=== PATIENT | female | born 1960 | race Caucasian/White ===

== ENCOUNTER → 2017-03-06 | Outpatient (CLI) | payer OTHER ==
[~2017-03-06] MED LIST: ENOX40IN SQ; MULT-506 PO; OXYC-292 PO; OXYC-643 PO
--- NOTE | 2017-03-07 12:58 | MAMMOGRAPHY REPORT ---
BILATERAL DIGITAL SCREENING MAMMOGRAM TOMOSYNTHESIS WITH CAD: 03/06/2017 CLINICAL HISTORY: Routine screening examination. TECHNIQUE: Breast tomosynthesis in addition to standard 2D mammography was performed. Current study was also evaluated with a Computer Aided Detection (CAD) system. COMPARISON: Comparison is made to exams dated: 03/01/2016 mammogram, 02/24/2015 mammogram, 02/18/2014 m ammogram, 02/12/2013 mammogram, 02/07/2012 mammogram, and 02/02/2011 mammogram - [facility]. BREAST COMPOSITION: There are scattered areas of fibroglandular density in both breasts. FINDINGS: There are stable intramammary lymph nodes in each upper outer quadrant. No suspicious mas s, architectural distortion or cluster of new, suspicious microcalcifications is seen. IMPRESSION: ACR BI-RADS CATEGORY 1: NEGATIVE There is no mammographic evidence of malignancy. A 1 year screening mammogram is recommended. The p atient will receive written notification of the results. Approximately 10% of breast cancers are not detected with mammography. A negative mammographic repor t should not delay biopsy if a clinically suggestive mass is present. Yeimy Jerome M.D. ay/:03/06/2017 17:32:09 Campus Security Officer: Germania MORE(Maral)(M), letter sent: Normal 1/2 BI-RADS Code: ACR BI-RADS Category 1: Negative
== END | disposition home or self-care (01) ==
LOC: C.MAMM 07:57
PROVIDERS: ATTEND Family Medicine
DX: Z12.31 Encounter for screening mammogram for malignant neoplasm of breast (principal)

== ENCOUNTER → 2018-05-22 | Outpatient (CLI) | payer OTHER ==
--- NOTE | 2018-05-22 13:38 | MAMMOGRAPHY REPORT ---
BILATERAL DIGITAL SCREENING MAMMOGRAM TOMOSYNTHESIS WITH CAD: 05/22/2018 CLINICAL HISTORY: Routine screening. Patient has no complaints. TECHNIQUE: The study was acquired using full field digital technology and interpreted from soft copy. Breast tomosynthesis in addition to standard 2D mammography was performed. Current study was also ev aluated with a Computer Aided Detection (CAD) system. COMPARISON: Comparison is made to exams dated: 03/06/2017 mammogram, 03/01/2016 mammogram, 02/24/2015 m ammogram, 02/18/2014 mammogram, 02/12/2013 mammogram, and 02/07/2012 mammogram - [facility]. BREAST COMPOSITION: There are scattered areas of fibroglandular density in both breasts. FINDINGS: There are stable intramammary lymph nodes in each upper outer quadrant. A few scattered be nign-appearing calcifications. No suspicious mass, architectural distortion or cluster of microcalcif ications is seen. IMPRESSION: ACR BI-RADS CATEGORY 1: NEGATIVE There is no mammographic evidence of malignancy. A 1 year screening mammogram is recommended.( 019) The patient will receive written notification of the results. Some breast cancers are not detected with mammography. A negative mammographic report should not joann y biopsy if a clinically suggestive mass is present. Yeimy Jerome M.D. ay/:05/22/2018 12:51:37 Fugitive Investigator: RT Janine(Maral)(Shwetha), [facility] letter sent: Normal 1/2 BI-RADS Code: ACR BI-RADS Category 1: Negative
== END | disposition home or self-care (01) ==
LOC: C.MAMM 09:47
PROVIDERS: ATTEND Family Medicine
DX: Z12.31 Encounter for screening mammogram for malignant neoplasm of breast (principal)

== ENCOUNTER 2024-12-05 10:59 | Inpatient (IN) ==
--- NOTE | 2024-11-13 09:20 | PAT Medication Instructions ---
Medication Instructions Date of Service November 13, 2024 Home Medications Medication Instructions Recorded gabapentin 800 mg tablet 800 mg PO TID #90 tabs 01/02/24 tramadol 50 mg tablet 50 mg PO BID diclofenac sodium 75 mg tablet,delayed release 75 mg PO BID PRN docusate sodium 100 mg capsule (Colace) 100 mg PO BID gabapentin 800 mg tablet 800 mg PO TID cyclobenzaprine 5 mg tablet 5 mg PO HS Amberen Menopause Support 2 cap PO QAM Black Elderbery Gummies 2 tab PO QAM Brain Health 6 Function 1 cap PO QAM Energy Multivitamin 1 tab PO QAM [place] Xl [place] Support 2 cap PO BID cholecalciferol (vitamin D3) 125 mcg (5,000 unit) tablet (Vitamin D3) 125 mcg PO QAM ASK your surgeon for instructions diclofenac sodium 75 mg tablet,delayed release 75 mg PO BID PRN STOP taking 2 weeks before surgery (or as soon as possible if surgery is within 2 weeks) Amberen Menopause Support 2 cap PO QAM Black [place] Gummies 2 tab PO QAM Brain Health 6 Function 1 cap PO QAM Energy Multivitamin 1 tab PO QAM [place] Xl [place] Support 2 cap PO BID DO NOT take the morning of surgery docusate sodium 100 mg capsule (Colace) 100 mg PO BID cholecalciferol (vitamin D3) 125 mcg (5,000 unit) tablet (Vitamin D3) 125 mcg PO QAM Take morning of surgery With a small sip of water, OTHERWISE NOTHING TO EAT OR DRINK AFTER MIDNIGHT: tramadol 50 mg tablet 50 mg PO BID gabapentin 800 mg tablet 800 mg PO TID Take evening before surgery tramadol 50 mg tablet 50 mg PO BID docusate sodium 100 mg capsule (Colace) 100 mg PO BID gabapentin 800 mg tablet 800 mg PO TID cyclobenzaprine 5 mg tablet 5 mg PO HS Other Notes If you have any questions please call us at [phone] or [phone] or [phone] or [phone]
--- NOTE | 2024-11-14 09:42 | Anesthesiology Consultation ---
Date of Service November 14, 2024 Assessment & Plan (1) Encounter for pre-operative examination: - surgeon ordered medical clearance, 11/28/[address] Lisa. Chart Review Chart Review: Pending: Refer to Additional Notes / Consult section and Patient seen in Pre Admission Testing Teaching & Discussion Pre-Anesthesia Teaching/Discussion Notes: Instructed NPO after midnight before surgery, except medications with 15 cc of water. Medication instructions provided according to the PAT guidelines. History Surgery Operation Date: 12/05/24 10:05 Proposed Procedures p L4-S1 Decompression L3-S1 Fusion Spinal Cord Monitoring - Jared Dye DO Height/Weight Height: 5 ft 1 in Weight: 105 kg Allergies Allergy/AdvReac Type Severity Reaction Status Date / Time No Known Allergies Allergy Unknown Verified 11/13/24 07:42 Medications Home Medications Medication Instructions Recorded Confirmed Last Taken tramadol 50 mg tablet 50 mg PO BID 11/10/21 11/13/24 Unknown diclofenac sodium 75 mg 75 mg PO BID PRN Pain 03/20/23 11/13/24 Unknown tablet,delayed release docusate sodium 100 mg capsule 100 mg PO BID 01/02/24 11/13/24 Unknown (Colace) gabapentin 800 mg tablet 800 mg PO TID #90 tabs 01/02/24 11/13/24 Unknown cyclobenzaprine 5 mg tablet 5 mg PO HS 07/07/24 11/13/24 Unknown Amberen Menopause Support 2 cap PO QAM 11/13/24 11/13/24 Unknown Black [place]bery Gummies 2 tab PO QAM 11/13/24 11/13/24 Unknown Brain Health 6 Function 1 cap PO QAM 11/13/24 11/13/24 Unknown Energy Multivitamin 1 tab PO QAM 11/13/24 11/13/24 Unknown Romeo Xl Romeo Support 2 cap PO BID 11/13/24 11/13/24 Unknown cholecalciferol (vitamin D3) 125 125 mcg PO QAM 11/13/24 11/13/24 Unknown mcg (5,000 unit) tablet (Vitamin D3) Past Medical History Medical History (Updated 11/14/24 @ 09:47 by Farrah Hair PA-C) 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 Exercise / Class Metabolic Activity III < 4 Walking/Shop/Light housework (ambulates with rolling walker, denies chest discomfort or shortness of breath with usual activities) Past Family History Family History Father Family history of diabetes mellitus Other No family history of adverse response to anesthesia Past Surgical History Surgical History H/O shoulder surgery right/left History of bilateral tubal ligation History of cholecystectomy History of colonoscopy History of lithotripsy History of salpingectomy History of tonsillectomy History of tooth extraction History of total knee replacement right/left Past Anesthesia History No Hx of Anesthesia Complications and No Family Hx of Anesthesia Complications History of PONV No Hx of PONV and No Hx of Motion Sickness Social History Smoking Status: Never smoker Do You Dip or Chew Tobacco: No Hx Alcohol Use: No Hx Substance Use: No substance use type: does not use Review of Systems Patient denies chest pain, shortness of breath, dyspnea on exertion, snoring, witnessed apneas, reflux, fever, chills, cough, wheezing, or palpitations. Physical Exam Vital Signs Vitals BP 127/82 P 75 TEMP 97.9 SP02 94% on RA RESP 18 Physical Patient resting comfortably in chair in no acute distress, alert and oriented, responding appropriately throughout visit Full cervical extension range of motion without pain TMD 3 finger breadths Mallampati Score 3 Dentition: edentulous, full upper and lower dentures Lungs: normal respiratory effort. Good air movement, clear throughout to auscultation, no adventitious breath sounds Cardiac: regular rate and rhythm, no murmurs noted Carotid arteries: negative bruit bilat Lab Results Anesthesia Preop Results Results Anesthesia Widget: WBC 4.59 K/ul (4.8-10.8) L 11/14/24 Hgb 12.5 g/dl (12.0-16.0) 11/14/24 Hct 37.0 % (37.0-47.0) 11/14/24 Plt 240 K/uL (130-400) 11/14/24 Na 140 mmol/L (136-145) 11/14/24 K 4.1 mmol/L (3.5-5.1) 11/14/24 Cl 105 mmol/L (98-107) 11/14/24 CO2 29 mmol/L (21-32) 11/14/24 BUN 16 mg/dl (6-23) 11/14/24 Creat 0.73 mg/dl (0.6-1.2) 11/14/24 Glucose Level 93 mg/dl (70-99(Fasting)) 11/14/24 PT 10.3 Seconds (9.0-12.0) 11/14/24 PTT 28 Seconds (21-31) 11/14/24 INR 0.9 (0.9-1.1) 11/14/24 Urine Color Yellow 11/14/24 Urine Appearance Cloudy (Clear) A 11/14/24 Urine pH 5.5 (4.5-7.5) 11/14/24 Urine Specific [place] 1.019 (1.000-1.030) 11/14/24 Urine Protein Negative (Negative) 11/14/24 Urine Glucose (UA) Negative (Negative) 11/14/24 Urine Ketones Trace (Negative) H 11/14/24 Urine Blood Negative (Negative) 11/14/24 Urine Nitrite Negative (Negative) 11/14/24 Urine Bilirubin Negative (Negative) 11/14/24 Urine Urobilinogen Negative (Negative) 11/14/24 Urine Leukocyte Esterase 3+ (Negative) H 11/14/24 Urine WBC (Auto) >50 /hpf (0-5) H 11/14/24 Urine RBC (Auto) 3-5 /hpf (0-2) H 11/14/24 Urine Hyaline Casts (Auto) 3-5 /lpf (0-2) H 11/14/24 Urine Epithelial Cells (Auto) 0-2 /hpf (0-2) 11/14/24 Urine Bacteria (Auto) 1+ (None Seen) H 11/14/24 Blood Type O Positive 11/14/24 Antibody Screen NEGATIVE 11/14/24 Testing Laboratory Results Surgeon's office made aware of abnormal UA. Electrocardiogram Date: 11/14/24 Sinus rhythm with PACs, rate 85 bpm Chest X-Ray Date: 11/14/24 No acute findings.
[~2024-12-05 10:59] MED LIST changes: +DEXAMETHASONE SOD INJ 4 MG/ML VIAL ONE; -ENOX40IN SQ; +GLYCOPYRROLATE 0.2 MG/ML VIAL ONE; +LIDOCAINE 2% 2 ML VIAL/AMP(20MG/ML) INFIL ONE; +MIDAZOLAM HCL 1 MG/ML 2ML VIAL ONE; -MULT-506 PO; +ONDANSETRON INJ 2 MG/ML 2 ML VIAL ONE; -OXYC-292 PO; -OXYC-643 PO; +PROPOFOL IV EMULSION 10 MG/ML 20 ML VIAL IV ONE; +ROCURONIUM BROMIDE 10 MG/ML 5 ML VIAL IV ONE; +fentaNYL citrate PF 100 MCG/2 ML VIAL ONE
[2024-12-05] MEDS: ACETAMINOPHEN 500 MG TAB PO SCH (11:18)
[2024-12-05] MEDS: CeleBREX 200 MG CAP PO SCH (11:18)
[2024-12-05] MEDS: LR 15ML/HR IV SCH (11:19)
[2024-12-05] MEDS: GABAPENTIN 300 MG CAP PO SCH (11:19)
[2024-12-05] MEDS: LR 60ML/HR IV SCH (11:19)
[2024-12-05] MEDS ORDERED: PROMETHAZINE HCL 6.25 MG in SODIUM CHLORIDE 0.9% 50 ML IV PRN (11:27)
[2024-12-05] MEDS ORDERED: ATROPINE SULFATE 0.1 MG/ML 10ML SYR IV PRN (11:27)
--- NOTE | 2024-12-05 11:33 | History & Physical Bridge Note ---
Date of Service December 05, 2024 History & Physical Bridge Note I have examined the patient, reviewed the History & Physical and in the interval since the performance of the History & Physical I have noted the following changes of clinical significance: no changes noted
--- NOTE | 2024-12-05 11:35 | History & Physical Report ---
Date of Service December 05, 2024 Assessment & Plan (1) Multilevel lumbosacral spondylosis with radiculopathy: Plan: L4-S1 decompression, L3-S1 fusion History of Present Illness Chief Complaint: Back and leg pain. Primary Care Provider: Randa Lisa Patient is a send this is a 64-year-old female presents with persistent back and leg pain and failing course of nonoperative care is here for surgical invention. Allergies Allergy/AdvReac Type Severity Reaction Status Date / Time No Known Allergies Allergy Unknown Verified 12/05/24 11:24 Home Medications Medication Instructions Recorded Confirmed Type tramadol 50 mg tablet 50 mg PO BID 11/10/21 12/05/24 History diclofenac sodium 75 mg 75 mg PO BID PRN Pain 03/20/23 12/05/24 History tablet,delayed release docusate sodium 100 mg capsule 100 mg PO BID 01/02/24 12/05/24 History (Colace) gabapentin 800 mg tablet 800 mg PO TID #90 tabs 01/02/24 12/05/24 Rx cyclobenzaprine 5 mg tablet 5 mg PO HS 07/07/24 12/05/24 History Amberen Menopause Support 2 cap PO QAM 11/13/24 12/05/24 History Black Elderbery Gummies 2 tab PO QAM 11/13/24 12/05/24 History Brain Health 6 Function 1 cap PO QAM 11/13/24 12/05/24 History Energy Multivitamin 1 tab PO QAM 11/13/24 12/05/24 History [place] Xl [place] Support 2 cap PO BID 11/13/24 12/05/24 History cholecalciferol (vitamin D3) 125 125 mcg PO QAM 11/13/24 12/05/24 History mcg (5,000 unit) tablet (Vitamin D3) Past Med/Surg History Problem List (Updated 12/05/24 @ 11:34 by Jared Dye DO) Multilevel lumbosacral spondylosis with radiculopathy Encounter for pre-operative examination Lumbar spondylosis Morbid obesity Lumbar radiculopathy Medical History (Updated 12/05/24 @ 11:34 by Jared Dye DO) Lumbar radiculopathy Restrictive airway disease denies chronic issues-denies inhaler use 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 Osteoarthritis History of kidney stones (~2009) Surgical History History of lithotripsy History of salpingectomy History of bilateral tubal ligation H/O shoulder surgery right/left History of total knee replacement right/left History of colonoscopy History of cholecystectomy History of tooth extraction History of tonsillectomy Family History Father Family history of diabetes mellitus Other No family history of adverse response to anesthesia Social History Smoking Status: Never smoker Second Hand Exposure: Yes (as a child); Do You Dip or Chew Tobacco: No; Hx Alcohol Use: No Hx Substance Use: No Preferred Language: Fijian Visual Impairment: No Limitations Hearing Ability: Normal Parts Identifier Required: No Beliefs That Will Affect Care: None marital status: engaged Current Living Situation: Significant Other current occupational status: employed current occupation: [email or web address] houses Feels Safe at Home: Yes Safety Concerns: Feels Safe At This Time Assistive Devices: Denture - Upper, Denture - Lower, Glasses and Walker Assistive Devices Comment: reading glasses Physical Exam Physical Exam: Patient is alert and oriented heart regular rhythm lungs clear
[2024-12-05] MEDS: ceFAZolin 2000MG 2,000 MG/15 ML SYR IV SCH ×2 (12:07→20:33)
[2024-12-05] MEDS: BUPIVACAINE/EPINEPHRINE 0.25% 1:200,000 30 ML VIAL ONE (13:03)
[2024-12-05] MEDS: ceFAZolin 330 MG/ML 1 GM VIAL ONE (13:04)
[2024-12-05] MEDS ORDERED: PHENYLEPHRINE 100MCG/ML 5ML SYR ONE (13:13)
[2024-12-05] MEDS ORDERED: SUGAMMADEX SODIUM 200 MG/2 ML VIAL IV ONE (13:52)
[2024-12-05] MEDS ORDERED: HYDROmorphone INJ 2 MG/ML SYR/VIAL ONE (14:30)
[2024-12-05] MEDS: FLOSEAL HEMOSTATIC MATRIX 10ML TOP ONE (14:33)
--- NOTE | 2024-12-05 14:48 | Operative Report ---
Post Operative Report Pre & Post Diagnosis Operation Date: 12/05/24 12:25 Pre-Op Diagnosis: Multilevel Lumbosacral Spondylosis with Radiculopathy Lumbar spinal stenosis with neurogenic claudication Morbid obesity Post-Op Diagnosis: Same I identified the patient and participated in the time-out.: Yes Procedure Operation Date: 12/05/24 12:25 Actual Procedures #1 lumbar decompression with bilateral medial facetectomies and foraminotomies L3-L4 L4-L5 L5-S1. #2 posterior spinal fusion L3-L4 L3-L4 L4-5. #3 placed posterior segmental instrumentation L3-L5. #4 interbody fusion L4-L5 L5-S1. #5 placement of Spira 12 x 26 mm x 2 at L4-5 and 13 x 26 mm x 2 and L5-S1. #6 placement locally harvested morselized autograft posterior gutters per #7 placement of infuse collagen sponge, with Koros in the posterior lateral gutters and os design interbody space. #8 application of versa wrap of the exposed dura. Surgeon Jared Dye, DO Flare Worker Garry Deleon Estimated Blood Loss 550 Findings See Below The patient is 5 foot 1 weighing 105 kg with a BMI in excess of 43. Patient's body habitus did contribute to significant technical difficulty with positioning exposure and the procedure itself and at least 50% increased operative time. Specimens None Indications This is a 64-year-old female who presents above-mentioned diagnosis after failing course of nonoperative care is here for surgical invention. Description of Procedure Patient was met with identified informed consent obtained. Patient was then taken to the operative suite underwent intubation placed in a prone position on the Andrew table on top of the Dany frame. All bony promises well-padded eyes inspected to ensure no external pressure placed upon them. This point lumbar spine was prepped and draped in normal sterile fashion. Sharp dissection with the assistance of Bovie cautery performed down to and exposing the lamina and transverse processes of L3-L4-L5 and the sacral ala bilaterally. From caudal to cephalad fashion complete laminectomy of L5 was performed including bilateral medial facetectomies and foraminotomies addressing severe spinal stenosis. This was followed by complete laminectomy of L4. This included bilateral medial facetectomies and foraminotomies addressing severe spinal stenosis and lastly partial laminectomy of L3 with bilateral medial facetectomies to address all subarticular stenosis. Pedicle screws were then placed in L3-L4-L5 and S1 levels bilaterally with assistance of fluoroscopy and globus as aneta placed. By way of a transforaminal portion right discectomy of L5-S1 was performed endplates corrected to subcortical and bone and a 13 x 26 mm Spira cage filled with os designed tapped in position. Then proceeded the left transforaminal region L5-S1. Again discectomy performed. Endplates guarded to subcortical main bone. A second 13 x 26 mm spiral cage filled with os design bone graft tapped position. Then proceeded L4-[address] transfer approach and a left discectomy was performed endplates guarded to subcortical bleeding bone and a 12 x 26 mm spiral cage filled with os design tapped in position. Then proceeded to the right transforaminal region at L4-L5. Again discectomy performed. Endplates guided to subcortical bleeding bone and a second 12 x 26 mm Spira cage filled with os design bone graft tapped in position. The rods were then locked in final position bilaterally. The transverse processes of L3 L4-5 and the sacral ala burred to subcortical bone. Infuse collagen sponge, with Koros and local autograft placement posterior gutters. Versa wrap placed over the exposed dura. 15 round drain round [id number] drain inserted. The incision was then closed with 1 Vicryl the fascia 2-0 Vicryl subcutaneously and 4 Monocryl for final skin closure. Steri-Strips sterile dressing placed. Patient waken taken to PACU in stable condition. Please note spinal cord monitoring was utilized at the procedure no changes noted. Garry Deleon was present at the entire surgery involved the patient positioning complex portion of the surgery and final skin closure. I attest to the content of the Intraoperative Record and any orders documented therein. Any exceptions are noted below.
--- NOTE | 2024-12-05 15:41 | Fluoroscopy Report ---
FL lumbar spine 2-3V CLINICAL HISTORY: L4-S1 DECOMPRESSION AND L3-S1 FUSION COMPARISON STUDY: Lumbar spine MRI October 23, 2024. FLUOROSCOPY TIME: 31 seconds. Ka,r: 29.91 mGy FLUOROSCOPIC IMAGES: 2 FINDINGS: Fluoroscopy provided during posterior decompression with L4-L5 and L5-S1 discectomies with interbody spacer placement. L4 and L5 compression fractures shown on preoperative MRI. Bilateral pedi patti screw fusion from L3 through S1 is noted. IMPRESSION: Fluoroscopy provided during L3-S1 decompression and fusion. ACT 112: Negative or not required by law. Electronically signed by: Stefan Gaytan M.D. 12/05/2024 3:40 PM
[2024-12-05] MEDS: HYDROmorphone INJ 1 MG/ML SYRINGE IV PRN (15:55)
--- NOTE | 2024-12-05 16:09 | Anesthesiology Progress Note ---
Date of Service December 05, 2024 Anesthesia Post Procedure Vital Signs Vital Signs: Temp Pulse Resp BP Pulse Ox O2 Del Method O2 Flow Rate 12/05/24 15:55 86 17 137/75 97 Nasal Cannula 2 12/05/24 15:45 89 18 125/68 96 Nasal Cannula 2 12/05/24 15:35 73 18 126/59 L 99 Oxymask 8 12/05/24 15:25 82 12 136/65 99 Oxymask 8 12/05/24 15:15 84 13 117/75 100 Oxymask 12 12/05/24 15:05 36 C L 81 21 140/71 94 Oxymask 12 12/05/24 11:28 Room Air 12/05/24 11:28 36.5 C 88 22 149/82 H 95 Room Air Pain Intensity Left Lower Hip: Pain Intensity: 5 Transfer of Care Handoff Completed per policy Notes Mental Status: alert / awake / arousable Patient Amnestic to Procedure: Yes Nausea / Vomiting: adequately controlled Pain: adequately controlled Airway Patency, RR, SpO2: stable & adequate BP & HR: stable & adequate Hydration State: stable & adequate Anesthetic Complications: no major complications apparent
[2024-12-05] MEDS ORDERED: diphenhydrAMINE Capsule 25 MG CAP PO PRN (16:54)
[2024-12-05] MEDS ORDERED: DO NOT ADMINISTER FLU VACCINE PRN (16:54)
[2024-12-05] MEDS ORDERED: ACETAMINOPHEN 500 MG TAB PO PRN (16:54)
[2024-12-05] MEDS ORDERED: HYDROmorphone INJ 0.5 MG/0.5 ML SYR IV PRN (16:54)
[2024-12-05] MEDS ORDERED: DO NOT ADMINISTER PNEUMOCOCCAL VACCINE PRN (16:54)
[2024-12-05] MEDS ORDERED: HYDROmorphone INJ 1 MG/ML SYRINGE IV PRN (16:54)
[2024-12-05] MEDS ORDERED: LORazepam 2 MG/1 ML VIAL IV PRN (16:54)
[2024-12-05] MEDS ORDERED: NALOXONE HCL 0.4 MG/1 ML VIAL/CARP IV PRN (16:54)
[2024-12-05] MEDS ORDERED: LORazepam 0.5 MG TAB PO PRN (16:54)
[2024-12-05] MEDS ORDERED: hydrOXYzine HCl 25 MG TAB PO PRN (16:54)
[2024-12-05] MEDS ORDERED: ONDANSETRON 4 MG OD TAB PO PRN (16:54)
[2024-12-05] MEDS ORDERED: MAGNESIUM HYDROXIDE SUSP 30 ML UDC PO PRN (16:54)
[2024-12-05] MEDS ORDERED: METOCLOPRAMIDE HCL INJ 5 MG/ML 2 ML VIAL IV PRN (16:54)
[2024-12-05] MEDS ORDERED: ALUMINUM/MAGNESIUM SUSP 30 ML UDC PO PRN (16:54)
[2024-12-05] MEDS ORDERED: ACETAMINOPHEN 1,000 MG/100 ML VIAL IV PRN (16:54)
[2024-12-05] MEDS ORDERED: PROMETHAZINE 12.5 MG/50.5 ML BAG IV PRN (16:54)
[2024-12-05] MEDS ORDERED: ONDANSETRON INJ 2 MG/ML 2 ML VIAL IV PRN (16:54)
[2024-12-05] MEDS ORDERED: FAMOTIDINE 20 MG TAB PO PRN (16:54)
[2024-12-05] MEDS ORDERED: bisacodyL 10 MG SUPP PR PRN (16:54)
[2024-12-05] MEDS ORDERED: SOD PHOSPHATE/SOD BIPHOSPHATE ENEMA 132 ML BTL PR PRN (16:54)
[2024-12-05] MEDS: DOCUSATE SODIUM/SENNA 50/8.6MG TAB PO SCH (20:33)
[2024-12-05] MEDS: DOCUSATE SODIUM 100 MG CAP PO SCH (20:33)
[2024-12-05] MEDS: GABAPENTIN 800 MG TAB PO SCH (21:17)
[2024-12-05] MEDS: traMADol HCL 50 MG TABLET PO PRN (22:26)
[2024-12-05] MEDS: oxyCODONE HCL IR 5 MG TAB (IMMEDIATE RELEASE) PO PRN (23:14)
[2024-12-06] MEDS: POLYETHYLENE (MIRALAX) 17 GM PACK PO SCH (05:15)
[2024-12-06 07:43] LABS: Basophils # (auto) 0.01 K/uL (0.00-0.20); Basophils % (auto) 0.1 %; Hematocrit (blood only) 29.2 % (37.0-47.0); Immature Granulocytes # (auto) 0.04 K/uL (0.01-0.20); Immature Granulocytes % (auto) 0.4 %; Lymphocytes # (auto) 1.37 K/uL (1.20-3.40); Lymphocytes % (auto) 13.9 %; Mean Corpuscular Hemoglobin 34.5 pg (25.0-34.0); Mean Corpuscular Hgb Conc 34.2 g/dL (32.0-36.0); Mean Corpuscular Volume 100.7 fL (80.0-100.0); Mean Platelet Volume 9.4 fL (9.4-12.4); Monocytes # (auto) 0.64 K/uL (0.11-0.59); Monocytes % (auto) 6.5 %; Neutrophils # (auto) 7.78 K/uL (1.40-6.50); Neutrophils % (auto) 79.1 %; Platelet Count 232 K/uL (130-400); White Blood Count 9.84 K/ul (4.8-10.8)
[2024-12-06 07:56] LABS: BUN Creatinine Ratio 28.6 (10-20); Calcium 8.5 mg/dl (8.6-10.3); Creatinine Clr Calc Pharmacy 99.3 ml/min; Magnesium 1.8 mg/dl (1.7-2.4); Potassium 4.3 mmol/L (3.5-5.1)
[2024-12-06 08:18] LABS: Folate (Folic Acid),Ser orPlas 21.56 ng/ml (>5.38)
[2024-12-06] MEDS: dexAMETHasone 6 MG in SYRINGE 0 ML IV SCH (08:22)
[2024-12-06] MEDS: CHOLECALCIFEROL 125 MCG (5,000 UNITS) TAB PO SCH (08:22)
[2024-12-06] MEDS ORDERED: [UNRECOGNIZED DRUG - OTHER] PO SCH (09:00)
--- NOTE | 2024-12-06 09:13 | Hospitalist Consultation ---
Date of Consultation December 06, 2024 Assessment & Plan (1) Multilevel lumbosacral spondylosis with radiculopathy: L4-S1 decompression and L3-S1 fusion with Dr Dye on 12/05. EBL 550cc EBL 550cc WBC wnl Hgb 12.5--> 10.0, acute blood loss anemia from surgery (EBL 550cc, JYOTSNA output 480 + 80cc) -No CP/SOB, symptoms from such and will monitor. Home diclofenac BID deferred to prevent worsened bleeding issues. Pain control, bowel regimen/PT/OT per primary service -No gas, slightly hypoactive BS but no overt tenderness. -Monitor for ileus/ambulation encouraged *Notable Urine cx prior ecoli pansensitive pre-op testing. -Got ancef w/ surgery, will continue q8h for today/convert to PO in AM to prevent complications as does not appear was tx prior to surgery, confirmed w/ patient.No abx allergies, would complete course w/ Keflex PO (2) Lumbar radiculopathy: as above, continues on high dose gabapentin TID, B12 wnl 379 and can start low dose B12 PO Management as above (3) Abnormal urinalysis: abnormal UA/urine cx on pre-op testing, does not appear has been treated and Ancef resumed/continued and would complete course w/ Keflex PO. Paredes in place at present, yellow urine present and UOP acceptable Plan to complete PO abx course Plan Thank you for allowing hospitalist service to participate in the care of Ms Ramos. Hospitalist service will follow along in AM, please call with any questions/concerns. Supervising Physician Co-Signing Physician Notes The patient was seen by me. The chart was reviewed. Case discussed with RONALD Loyd. Agree with assessment and plan History of Present Illness Reason for Consultation: medical management Requesting Physician: Dr Dye Attending Physician: Jared Dye, History of Present Illness 64yo female with PMHx presented for L4-S1 decompression and L3-S1 fusion with Dr Dye on 12/05. EBL 550cc Sitting up in chair, on phone. Pain controlled with ordered meds. Belly gurgling per patient but no bowel movement. Paredes in place. Denies urinary sx prior to surgery but also denies ever tx for UTI. Discussed I resumed ancef but did get pre-op and rec to primary to continue/complete course w/ Keflex. Got usual meds except vitamins/supplements taking at home with exception of her diclofenac BID but discussed would avoid for now/prevent bleeding and rec continue pain regimen per primary given stability presently. No CP/SOB, no nausea/vomiting. Wegovy on home med list, but denies taking -- [facility] Questions/concerns addressed at this time, anticipates dc home on Sunday per patient. Seen by therapy this morning and allowed to ambulate w/ walker herself. Chronic stable R hemidiaphagm elevation per PCP note. No tobacco/alcohol use or allergies. Takes gabapentin 800mg TID for neuropathy. Allergies Allergy/AdvReac Type Severity Reaction Status Date / Time No Known Allergies Allergy Unknown Verified 12/05/24 11:24 Home Medications Medication Instructions Recorded Confirmed Type tramadol 50 mg tablet 50 mg PO BID 11/10/21 12/05/24 History diclofenac sodium 75 mg 75 mg PO BID PRN Pain 03/20/23 12/05/24 History tablet,delayed release docusate sodium 100 mg capsule 100 mg PO BID 01/02/24 12/05/24 History (Colace) gabapentin 800 mg tablet 800 mg PO TID #90 tabs 01/02/24 12/05/24 Rx cyclobenzaprine 5 mg tablet 5 mg PO HS 07/07/24 12/05/24 History Amberen Menopause Support 2 cap PO QAM 11/13/24 12/05/24 History Black Elderbery Gummies 2 tab PO QAM 11/13/24 12/05/24 History Brain Health 6 Function 1 cap PO QAM 11/13/24 12/05/24 History Energy Multivitamin 1 tab PO QAM 11/13/24 12/05/24 History [place] Xl [place] Support 2 cap PO BID 11/13/24 12/05/24 History cholecalciferol (vitamin D3) 125 125 mcg PO QAM 11/13/24 12/05/24 History mcg (5,000 unit) tablet (Vitamin D3) oxycodone 5 mg tablet 5 mg PO Q6H PRN pain #30 tabs 12/06/24 Rx tramadol 50 mg tablet 50 mg PO Q6H PRN pain, moderate 12/06/24 Rx #30 tabs Patient History Medical History Lumbar radiculopathy Restrictive airway disease denies chronic issues-denies inhaler use 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 Osteoarthritis History of kidney stones (~2009) Surgical History History of lithotripsy History of salpingectomy History of bilateral tubal ligation H/O shoulder surgery right/left History of total knee replacement right/left History of colonoscopy History of cholecystectomy History of tooth extraction History of tonsillectomy Family History Father Family history of diabetes mellitus Other No family history of adverse response to anesthesia Social History Smoking Status: Never smoker Second Hand Exposure: Yes (as a child); Do You Dip or Chew Tobacco: No; Hx Alcohol Use: No Hx Substance Use: No Preferred Language: Frisian Visual Impairment: No Limitations Hearing Ability: Normal Interchange Agent Required: No Beliefs That Will Affect Care: None marital status: engaged Current Living Situation: Significant Other current occupational status: employed current occupation: [employer] Feels Safe at Home: Yes Safety Concerns: Feels Safe At This Time Assistive Devices: Denture - Upper, Denture - Lower, Glasses and Walker Assistive Devices Comment: reading glasses Physical Exam 2 Physical Exam: General: 64yo obese female sitting up in bed, on phone, NAD HEENT: head atraumatic, normocephalic , thick neck, tachea midline, mmm Resp: clear without wheezing/crackles or tachypnea, chronic R hemidiaphragm elevation CV: sinus, PVC, no pitting edema or calf tenderness, pulses present/preeti hose in place GI: +BS, slightly hypoactive, no overt tenderness/guarding paredes with clear yellow urine MSK/Neuro: LE strength testing acceptable, neuropathy at baseline, pulses present, JYOTSNA bloody drainage Psych: AOx3, cooperative with exam Results & Data Results & Data Vital Signs (Past 12 Hours) Vital Signs Temp Pulse Resp BP Pulse Ox O2 Del Method 12/06/24 07:48 37.0 C 112 H 16 129/65 92 Room Air 12/06/24 04:10 37 C 98 H 16 115/69 92 Room Air 12/05/24 23:24 36.8 C 92 H 18 122/67 92 Room Air Laboratory Results 12/06/24 07:00 12/06/24 07:00 Mag 1.8 B12 379 Diagnostic Findings Lumbar Spine X-Ray 12/05/24 12:25 FL lumbar spine 2-3V CLINICAL HISTORY: L4-S1 DECOMPRESSION AND L3-S1 FUSION COMPARISON STUDY: Lumbar spine MRI October 23, 2024. FLUOROSCOPY TIME: 31 seconds. Ka,r: 29.91 mGy FLUOROSCOPIC IMAGES: 2 FINDINGS: Fluoroscopy provided during posterior decompression with L4-L5 and L5- S1 discectomies with interbody spacer placement. L4 and L5 compression fractures shown on preoperative MRI. Bilateral pedicle screw fusion from L3 through S1 is noted. IMPRESSION: Fluoroscopy provided during L3-S1 decompression and fusion. ACT 112: Negative or not required by law. Electronically signed by: Stefan Gaytan M.D. 12/05/2024 3:40 PM PG Care Time/CCT Total # of Minutes Spent Total Time Spent with Patient: Total time spent is greater than 50% in coordination of care (as documented) at patient's floor/unit and/or counseling patient: Coding Level of Care Code 90281 IN/OBS CONSULT LVL 3,45M Diagnoses Multilevel lumbosacral spondylosis with radiculopathy M47.27 Lumbar radiculopathy M54.16 Abnormal urinalysis R82.90
--- NOTE | 2024-12-06 10:38 | Orthopedic Progress Note ---
Date of Service December 06, 2024 Assessment & Plan (1) Multilevel lumbosacral spondylosis with radiculopathy: Plan: Patient is doing well. Has marked improvement in pain. Will monitor JYOTSNA out and physical therapy. He will be discharged home next few days. Admission and Anticipated Discharge Date Admission Date: December 05, 2024 Subjective Back pain controlled leg pain improved Physical Exam Physical Exam: Patient is in the chair at the bedside. Is complicated the strength testing. Results & Data Vital Signs (Past 12 Hours) Vital Signs Temp Pulse Resp BP Pulse Ox O2 Del Method 12/06/24 07:48 37.0 C 112 H 16 129/65 92 Room Air 12/06/24 04:10 37 C 98 H 16 115/69 92 Room Air 12/05/24 23:24 36.8 C 92 H 18 122/67 92 Room Air Queries Orthopedic Spine Obesity: Yes
[2024-12-06] MEDS: ceFAZolin 1000MG 1,000 MG/7.5 ML SYR IV SCH (10:39)
[2024-12-06] MEDS: MAGNESIUM SULFATE / D5W 1 GM/100 ML BAG IV ONE (11:47)
[2024-12-07] MEDS: CYCLOBENZAPRINE HCL 5 MG TAB PO STA (01:58)
[2024-12-07 06:20] LABS: Hematocrit (blood only) 28.8 % (37.0-47.0); Hemoglobin 9.8 g/dl (12.0-16.0); Mean Corpuscular Hemoglobin 34.1 pg (25.0-34.0); Mean Corpuscular Volume 100.3 fL (80.0-100.0); Mean Platelet Volume 9.1 fL (9.4-12.4); Platelet Count 201 K/uL (130-400); RDW Coefficient of Variation 12.1 % (11.5-14.5); RDW Standard Deviation 44.6 fL (36.4-46.3); Red Blood Count 2.87 M/uL (4.20-5.40); White Blood Count 9.84 K/ul (4.8-10.8)
[2024-12-07 06:37] LABS: Calcium 8.6 mg/dl (8.6-10.3); Creatinine Clr Calc Pharmacy 115.9 ml/min
[2024-12-07] MEDS: CYANOCOBALAMIN (B-12) 500 MCG TABLET PO SCH (07:55)
--- NOTE | 2024-12-07 08:30 | Orthopedic Progress Note ---
Date of Service December 07, 2024 Assessment & Plan (1) Multilevel lumbosacral spondylosis with radiculopathy: Plan: Patient is postoperative day 2 status post L3-S1 decompression and fusion. I feel her groin pain is actually hip related. She will follow-up Dr. Mackay as an outpatient. Continue physical therapy today. DVT prophylaxis is in the form teds and SCDs. Continue with pain control. Maintain JYOTSNA drain. Anticipate discharge home tomorrow. Admission and Anticipated Discharge Date Admission Date: December 05, 2024 Subjective Patient is postoperative day 2 status post L3-S1 decompression and fusion. Biggest complaint is right groin pain. She has undergone a right intra- articular hip injection by Dr. Mackay2 months ago did obtain relief.. This pain is similar. She is passing flatus. No bowel movement. JYOTSNA drain output last shift was 110 cc. H&H is morning are 9.8 and 28.8 respectively. Yesterday in physical therapy [place] 300 feet Review of Systems Review of Systems: All systems reviewed & are unremarkable except as noted in HPI & below Physical Exam Physical Exam: She sitting in a chair eating breakfast in no acute distress Alert and oriented x 3 She has positive logrolling on the right strength intact bilateral lower extremities JULIEN hose intact bilaterally Results & Data Vital Signs (Past 12 Hours) Vital Signs Temp Pulse Resp BP Pulse Ox O2 Del Method 12/07/24 08:03 36.7 C 76 16 125/65 98 Room Air 12/06/24 21:28 37 C 70 18 150/75 H 94 Room Air Queries Orthopedic Spine Obesity: Yes
--- NOTE | 2024-12-07 09:01 | Hospitalist Progress Note ---
Date of Service December 07, 2024 Assessment & Plan (1) Multilevel lumbosacral spondylosis with radiculopathy: Plan: L4-S1 decompression and L3-S1 fusion with Dr Dye on 12/05. EBL 550cc EBL 550cc POD#2 WBC wnl, afebrile Hgb 12.5--> 10.0--> 9.8. Acute blood loss anemia from surgery (EBL 550cc, JYOTSNA output 480 + 335cc). No CP/SOB, symptoms from such and will monitor. Home diclofenac BID deferred to prevent worsened bleeding issues. Ancef continued for prior urine cx as discussed and paredes removed yesterday --> converted to keflex 500mg BID and would complete course at dc as messaged primary this morning Increased +BS on exam/flatus, monitor for ileus. Remains on bowel regimen per primary service Home flexeril 5mg HS added back for tonight, additional 5mg daily prn available per ok w/ primary Continue PT/OT/DVT prophylaxis per primary service Hopeful dc in AM per primary service (2) Lumbar radiculopathy: Plan: as above, continues on high dose gabapentin TID, B12 wnl 379 and started low dose B12/rx dc management as above, continued PT/OT (3) Abnormal urinalysis: Plan: abnormal UA/urine cx on pre-op testing, does not appear has been treated and Ancef resumed/continued and would complete course w/ Keflex PO. Paredes removed 12/06. converted ancef to keflex and plan to complete course as above for at least 5 days (asymptomatic reports but given back surgery would opt to complete tx course) Plan Thank you for allowing hospitalist service to participate in the care of Ms Ramos. If stable/no issues and plan for dc could sign off but will touch base with primary in AM to see if any questions/concerns. Please call with any questions/concerns in the meantime. Admission and Anticipated Discharge Date Admission Date: December 05, 2024 Supervising Physician Co-Signing Physician Notes The patient was not seen by me. The chart was reviewed. Case discussed with RONALD Loyd. Agree with assessment and plan Subjective Eval this morning, sitting up in chair. Seen by ortho this morning, discussed resuming flexeril at night. Pain reasonable control, passing some gas, feels BM coming. Remains on bowel regimen. No CP/SOB/lightheaded/dizziness, no abdominal pain/nausea. Leg symptoms stable, hip pain addressed by ortho and outpt f/u to be in place. Paredes removed yesterday, no urinary sx and converted to keflex and discussed rec for primary to complete course at dc. Plans for dc in AM. Questions/concerns addressed at this time. Physical Exam 2 Physical Exam: General: 64yo obese female sitting up in bed, NAD HEENT: head atraumatic, normocephalic , thick neck, trachea midline, mmm Resp: clear without wheezing/crackles or tachypnea, chronic R hemidiaphragm elevation 98% on RA CV: sinus, PVC, no pitting edema or calf tenderness, pulses present/preeti hose in place GI: increased bowel sounds, soft/no overt tenderness, no guarding/rigidity ; no further paredes, voiding spontaneously MSK/Neuro: LE strength testing acceptable, neuropathy at baseline, pulses present, JYOTSNA bloody drainage (decrease, more serosanguineous) Psych: AOx3, cooperative with exam Results & Data Results & Data Vital Signs (Past 12 Hours) Vital Signs Temp Pulse Resp BP Pulse Ox O2 Del Method 12/07/24 08:03 36.7 C 76 16 125/65 98 Room Air 12/06/24 21:28 37 C 70 18 150/75 H 94 Room Air Laboratory Results 12/07/24 06:03 12/07/24 06:03 PG Care Time/CCT Total # of Minutes Spent Total Time Spent with Patient: Total time spent is greater than 50% in coordination of care (as documented) at patient's floor/unit and/or counseling patient: Coding Level of Care Code 57649 SUB INP/OBS CARE 3/50MIN Diagnoses Multilevel lumbosacral spondylosis with radiculopathy M47.27 Lumbar radiculopathy M54.16 Abnormal urinalysis R82.90
[2024-12-07] MEDS ORDERED: BACLOFEN 10 MG TAB PO PRN (09:05)
[2024-12-07] MEDS ORDERED: CYCLOBENZAPRINE HCL 5 MG TAB PO PRN (09:09)
[2024-12-07] MEDS: cephALEXin 250 MG CAP PO SCH (10:13)
[2024-12-07] MEDS: CYCLOBENZAPRINE HCL 5 MG TAB PO SCH (20:27)
[2024-12-07] MEDS ORDERED: BACLOFEN 10 MG TAB PO SCH (21:00)
[2024-12-08 07:22] LABS: Hematocrit (blood only) 27.9 % (37.0-47.0); Hemoglobin 9.5 g/dl (12.0-16.0); Mean Corpuscular Hemoglobin 34.7 pg (25.0-34.0); Mean Corpuscular Hgb Conc 34.1 g/dL (32.0-36.0); Mean Corpuscular Volume 101.8 fL (80.0-100.0); Mean Platelet Volume 9.8 fL (9.4-12.4); Platelet Count 206 K/uL (130-400); Red Blood Count 2.74 M/uL (4.20-5.40); White Blood Count 8.69 K/ul (4.8-10.8)
[2024-12-08 08:42] LABS: BUN Creatinine Ratio 30.9 (10-20); Calcium 8.5 mg/dl (8.6-10.3); Creatinine Clr Calc Pharmacy 113.8 ml/min
[2024-12-08 08:51] LABS: Thyroid Stimulating Hormone 0.302 uIu/ml (0.300-4.500)
--- NOTE | 2024-12-08 09:50 | Communication Note ---
Date of Service: December 08, 2024 Patient seen socially this morning, up in chair. Pain much improved. Increased flatus and encouraged continued bowel regimen. She reports she is going home today. Discussed should be continued on couple more days Keflex as discussed w/ primary and if doesn't see on instructions to inquire. Rec at least additional 2 days to complete course. Doing well otherwise, VSS. Renal function stable and hgb stable/slowed. Hospitalist service will sign off at this time. Please call with any questions/concerns. CDS Query Urinary tract infection, POA -- as above, +UA/cx on pre-op testing. Confirmed w/ patient not treated. Was on ancef w/ surgery. Continued ancef IV for asymptomatic bacteriuria while paredes in place and transitioned to PO keflex once removed and continued PO at dc to complete course. F/u PCP
--- NOTE | 2024-12-08 11:53 | Discharge Summary ---
Date of Service December 08, 2024 Admission HPI Per Admitting Provider Patient is a send this is a 64-year-old female presents with persistent back and leg pain and failing course of nonoperative care is here for surgical invention. Principal Diagnosis Lumbar spondylosis with radiculopathy Discharge Data Allergies Allergy/AdvReac Type Severity Reaction Status Date / Time No Known Allergies Allergy Unknown Verified 12/05/24 11:24 Consultations 12/05/24 16:54 Consult Hospitalist Routine Procedures Performed Operation Date: 12/05/24 12:25 Actual Procedures p L4-S1 Decompression, L3-S1 Fusion, Spinal Cord Monitoring(Not Applicable) - Jared Dye, Ordered Studies 12/05/24 12:25 FL lumbar spine 2-3V Routine Hospital Course (1) Multilevel lumbosacral spondylosis with radiculopathy: Patient with lumbar decompression fusion trial as well as taken orthopedic for p ostoperative. Postop patient progressed appropriately throughout the weekend. Pain controlled. Extra strength testing. JYOTSNA drain decreasing. Simply discharged home. Discharge orders and instructions from the chart for further review. Total Time Total Time Spent Total Time Spent (In Minutes): 20 minutes Discharge Plan Discharge Items Patient Disposition: Home - Self-Care Reason For Visit: Closed Burst Fracture Lumbar Vertebra Sequela Discharge Diagnosis: Cervical spinal stenosis with radiculopathy Activity: Resume your previous activity Non-emergency contact: Primary Care Provider Call non-emergency contact if: you have any medication questions Follow-up/Referrals: Randa Lisa [Primary Care Provider] - Diet: Regular Addtl Attending Provider Instructions: ACTIVITY RECOMMENDATIONS: SELF CARE INSTRUCTIONS AFTER THORACIC/LUMBAR FUSIONS 1. You may walk to your tolerance. It is good exercise for your legs and back. Expect some back and intermittent leg aches and pains. 2. You may perform "counter-top" level activities (make a sandwich, lima with a project, etc.). 3. No bending or lifting of more than 10 pounds or back twisting of any nature (roll like a log when turning in bed). 4. You may ride in a car for 20-30 minutes at a time. No driving until after your first visit with your doctor. 5. Frequent changes of position and restricting sitting to 30 minutes at a time will help limit the amount of back spasms and stiffness you may experience. 6. You may discontinue the use of ambulatory aids (cane, crutches, etc.) once your strength and confidence allow. 7. You may arresting gear operator the shower and let water strike your incision when you arrive home at least once daily. Do not take a tub bath, sit in a hot tub or go into a swimming pool until after your first recheck in the office. 8. You may resume previous diet. SPECIAL CARE INSTRUCTIONS: VERY IMPORTANT TO READ AND REVIEW A. Your surgical incision has been closed with a cosmetic suture under the skin that will dissolve in about 6 weeks. In 14 days, you can use a pair of clean scissors and cut the suture that is left outside of the skin at the ends of your incision. 1. The small skin tapes can be removed 7 days after surgery if they have not fallen off by that point. 2. You may keep the wound open to air as much as possible to promote healing after post-op day number 5 unless told otherwise by your doctor. 3. If you think the wound looks like it is becoming infected (redness or worsening drainage) and/or you are experiencing fever, chill or worsening back pain and muscle spasms, contact the office so that we may evaluate you as soon as possible. B. Complications are uncommon, but please contact us if you have any signs or symptoms of: 1. wound infection (fever higher than 102.5 degrees F, redness, separation of wound, drainage, or increasing pain from the incision) 2. blood clots in legs (pain, swelling, redness and warmth in legs) 3. urinary tract infection (fever higher than 102.5 degrees F, burning upon urination or increased frequency of urination) 4. nerve problems (inability to walk on your toes or heels, numbness, loss of bowel or bladder control) 5. any other symptoms that concern you C. Please call the office at if you have any concerns or questions about your operation or recovery. D. No smoking! Smoking drastically decreases the chance of a solid fusion. E. Do not take any anti-inflammatory medications (Indocin, Advil, Motrin, Aspirin, Naprosyn, etc.) as these may inhibit the chance of a solid fusion. Tylenol is okay to take for pain. MANAGING PAIN AFTER SPINAL SURGERY 1. Narcotic medication is intended for short-term use and will be provided for surgical pain. Surgical pain usually lasts for a period of 4-6 weeks. Narcotic medication includes Percocet, Vicodin, Darvocet, Tylenol #3 or Lortab. 2. Longer-term pain is more appropriately treated with non-narcotic medication such as Tylenol ES. 3. Muscle spasm is not appropriately treated with narcotics. Muscle relaxers such as Soma, Flexeril or Skelaxin can be used along with Tylenol ES. 4. Remember that we all live with some "aches and pains". This is not unusual or uncommon after an injury or as we get older. a. Back pain is expected and may include muscle spasms for 4 to 6 weeks afte r surgery. The pain should gradually improve. If the pain worsens for no apparent reason, please contact the office. b. Intermittent leg pain may also be experienced and should not be concerned about unless it worsens for no apparent reason. If so, please contact the office. 5. We will provide appropriate medication within the normal guidelines of their prescribed use. We will also be very cautious and aware of potential abuse and extended duration of patients' medication needs. a. Pain medications are for your comfort and to assist with sleep and rest so that the tissue can heal. They are not provided in order to return to normal activity and should not be used through the day. To do so or worsening pain at night can result from ongoing tissue damage and development of tolerance to the prescribed medicine. 6. Please allow 2-3 days to process refills. Prescriptions will not be mailed but must be picked up at the office. FOLLOW UP VISIT: Keep your scheduled follow-up appointment. Any questions, please call the office at . Pending Studies at Discharge: No Stand-Alone Forms: [facility], Smoking Cessation Medications and DC Order Prescriptions: New tramadol 50 mg tablet 50 mg PO Q6H PRN (Reason: pain, moderate) Qty: 30 0RF oxycodone 5 mg tablet 5 mg PO Q6H PRN (Reason: pain) Qty: 30 0RF cyanocobalamin (vitamin B-12) 500 mcg Tablet 500 mcg PO QAM Qty: 30 0RF cephalexin 500 mg capsule 500 mg PO BID Qty: 6 0RF Continued tramadol 50 mg tablet 50 mg PO BID diclofenac sodium 75 mg tablet,delayed release (DR/EC) 75 mg PO BID PRN (Reason: Pain) Rx Instructions: only using it 1x/day because it upsets her stomach docusate sodium [Colace] 100 mg capsule 100 mg PO BID gabapentin 800 mg tablet 800 mg PO TID Qty: 90 3RF cyclobenzaprine 5 mg tablet 5 mg PO HS Amberen Menopause Support 2 cap PO QAM cholecalciferol (vitamin D3) [Vitamin D3] 125 mcg (5,000 unit) Tablet 125 mcg PO QAM Black Elderbery Gummies 2 tab PO QAM Brain Health 6 Function 1 cap PO QAM Energy Multivitamin 1 tab PO QAM [place] Xl [place] Support 2 cap PO BID Discharge Orders: Discharge Order (Routine); Ordered 12/08/24 Ordered By: Jared Nelson/Other Patient Handouts: Back Surg Daily Living Tips Admission Data Admit Date/Time: 12/05/24 14:52 Attending Provider: Jared Dye Admit Provider: Jared Dye Primary Care Provider: Randa Lisa Other Providers: Josef Whittington Other Interventions: Discharge Summary Assessment (RN) Last Done: 12/08/24 09:54
[2024-12-08 12:00] VITALS: BP 144/76; PULSE 74; RESP 13; TEMP 98.1; O2SAT 95
== END 2024-12-08 14:03 | disposition home or self-care (01) | DRG 427 ==
LOC: ASU 10:59 → 3W 14:52

== ENCOUNTER 2024-12-25 11:36 | Inpatient (IN) ==
[2024-12-25] MEDS: MoRPHine SULFATE 4 MG/ML 1 ML CARP\\VIAL IV STA (12:19)
--- NOTE | 2024-12-25 12:21 | Emergency Department Note ---
Impression & Plan Fall, Closed compression fracture of L3 vertebra, History of lumbosacral spine surgery, Sciatic leg pain ED Provider Note Provider: Godwin Hayden MD CHIEF COMPLAINT: Fall, back and left leg pain HISTORY OF PRESENT ILLNESS: Patient is a 64-year-old female significant past medical history including lumbar radiculopathy status post lumbar decompression and fusion [address] Dye here. Patient evidently 3 days ago states that her left leg gave out on her and she fell to the ground backwards. Not striking her head. [place] injury to the upper extremities or legs but pain in the back. Over the last 3 days worsening pain in the low back and sciatic pain rating down the left leg with a bit of numbness. Not significant in the right leg at this time. Denies additional falls but having significant occultly walking. Has been in contact with her orthopedic back surgeon and has been taking tramadol, gabapentin, and oxycodone which has not helped the pain very much but has made her a bit foggy. Evidently contacted them about possible back brace but given the significant pain and ambulatory dysfunction is having recommend she come here for further evaluation and care. PAST MEDICAL HISTORY: As noted above MEDICATIONS: Reviewed home medications currently includes tramadol gabapentin and oxycodone SOCIAL HISTORY: PHYSICAL EXAM: GENERAL: alert and oriented appears uncomfortable in wheelchair Head: normocephalic and atraumatic EYES: No injection, discharge or icterus. NECK: Trachea midline. ENT: Mucous membranes pink and moist. LUNGS: Airway patent. No retractions. HEART: Regular rate and rhythm. BACK: No midline step-offs. Lumbar surgical scar with approximately 40% of Sterisil intact without significant surrounding erythema or fluctuance. SKIN: Acyanotic, warm, dry, without rashes EXTREMITIES: Without swelling, tenderness or deformity NEUROLOGICAL: Gross sensation intact to the left leg. Moving all 4 extremities. No aphasia. No facial droop or slurred speech. PDMP was checked without noted issue. GCS 15. Patient's laboratory studies and imaging reviewed. Differential includes Musculoskeletal, disc herniation, fracture, metastatic disease, cord compression, discitis, sciatica, cauda equina, infection, aortic disease, renal colic, gastrointestinal, as well as other pathologies. IMPRESSION/MEDICAL DECISION MAKING: Patient history of back issues recent back surgery and now additional fall with worsening back pain to the left sciatic region. Does not appear altered. No reported head injury not on anticoagulants. Doubt occult ICH. Doubt CVA. Benign abdomen and doubt acute intra-abdominal pathology. No other injuries or pain reported in the extremities besides the low back and in the left leg. Bit of increased numbness by her report as well. Has been on outpatient therapy with gabapentin tramadol oxycodone without pain control. Given some IV morphine here. Basic blood work obtained. X-ray and CT of the lumbar region will be obtained to look for hardware displacement and/or fracture. Doubt infection. No reported fever. Blood work without leukocytosis. Stable mild anemia. No significant renal dysfunction or electrolyte abnormality noted. Again doubt this is infectious. X-ray and CT imaging per radiology report shows concerning findings for an L3 compression fracture with pedicle screw displaced superiorly. Did reach out discussed with Dr. Dye to discuss this in the recent postop setting. He recommended we bring the patient and he will consider possible surgical revision of the compression fracture around previous hardware. Patient and at bedside updated and agreeable with this plan. Pain is reasonable at this time after 2 doses of morphine. DIAGNOSIS: Back pain, sciatica left leg, history of lumbar surgery with a new L3 compression fracture DISPOSITION: Admit to the orthopedic surgical service. Past Med/Surg History Problem List (Updated 12/25/24 @ 13:28 by Godwin Hayden M.D.) Sciatic leg pain (Acute) History of lumbosacral spine surgery (Acute) Closed compression fracture of L3 vertebra (Acute) Fall (Acute) Abnormal urinalysis Multilevel lumbosacral spondylosis with radiculopathy Lumbar spondylosis Morbid obesity Lumbar radiculopathy Medical History Lumbar radiculopathy Restrictive airway disease denies chronic issues-denies inhaler use 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 Osteoarthritis History of kidney stones (~2009) Surgical History History of lithotripsy History of salpingectomy History of bilateral tubal ligation H/O shoulder surgery right/left History of total knee replacement right/left History of colonoscopy History of cholecystectomy History of tooth extraction History of tonsillectomy Family History Father Family history of diabetes mellitus Other No family history of adverse response to anesthesia Social History Smoking Status: Never smoker Second Hand Exposure: Yes (as a child); Do You Dip or Chew Tobacco: No; Hx Alcohol Use: No Hx Substance Use: No Preferred Language: American Communication Ability: Effective Visual Impairment: No Limitations Hearing Ability: Normal 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 Beliefs That Will Affect Care: None marital status: engaged Current Living Situation: Significant Other current occupational status: employed current occupation: [employer] Feels Safe at Home: Yes Assistive Devices: Walker Allergies Allergies Allergy/AdvReac Type Severity Reaction Status Date / Time No Known Allergies Allergy Unknown Verified 12/05/24 11:24 Home Meds Home Medications Medication Instructions Recorded Confirmed tramadol 50 mg tablet 50 mg PO BID 11/10/21 12/05/24 diclofenac sodium 75 mg 75 mg PO BID PRN Pain 03/20/23 12/05/24 tablet,delayed release docusate sodium 100 mg capsule 100 mg PO BID 01/02/24 12/05/24 (Colace) cyclobenzaprine 5 mg tablet 5 mg PO HS 07/07/24 12/05/24 Amberen Menopause Support 2 cap PO QAM 11/13/24 12/05/24 Black Elderbery Gummies 2 tab PO QAM 11/13/24 12/05/24 Brain Health 6 Function 1 cap PO QAM 11/13/24 12/05/24 Energy Multivitamin 1 tab PO QAM 11/13/24 12/05/24 Jones Xl Jones Support 2 cap PO BID 11/13/24 12/05/24 cholecalciferol (vitamin D3) 125 125 mcg PO QAM 11/13/24 12/05/24 mcg (5,000 unit) tablet (Vitamin D3) Previous Rx's Medication Instructions Recorded gabapentin 800 mg tablet 800 mg PO TID #90 tabs 01/02/24 cyanocobalamin (vitamin B-12) 500 500 mcg PO QAM #30 tabs 12/06/24 mcg tablet oxycodone 5 mg tablet 5 mg PO Q6H PRN pain #30 tabs 12/06/24 tramadol 50 mg tablet 50 mg PO Q6H PRN pain, moderate 12/06/24 #30 tabs cephalexin 500 mg capsule 500 mg PO BID #6 caps 12/08/24 Results & Data (ED) Vital Signs Vital Signs - 24 hr 12/25/24 11:41 Temperature 36.6 C Temperature Source Temporal Artery Scan Pulse Rate 86 Respiratory Rate 18 Respiratory Effort / Characteristics Non-Labored Spontaneous Respiratory Depth Normal Respiratory Pattern Regular Blood Pressure 152/78 H Blood Pressure Mean 102 Blood Pressure Position Sitting Pulse Oximetry 97 Oxygen Delivery Method Room Air Sepsis Recent Fever Within 48 Hours No Sepsis New/Unexplained Change in Mental Status N/A Sepsis Action Taken by Nursing No Action Required Laboratory Data 12/25/24 12:20 12/25/24 12:20 Lab Results 12/25/24 Range/Units 12:20 WBC 7.83 (4.8-10.8) K/ul RBC 3.17 L (4.20-5.40) M/uL Hgb 10.7 L (12.0-16.0) g/dl Hct 31.5 L (37.0-47.0) % MCV 99.4 (80.0-100.0) fL MCH 33.8 (25.0-34.0) pg MCHC 34.0 (32.0-36.0) g/dL RDW Std Deviation 44.4 (36.4-46.3) fL RDW Coeff of Tarik 12.1 (11.5-14.5) % Plt Count 332 (130-400) K/uL MPV 8.7 L (9.4-12.4) fL Immature Gran % (Auto) 0.5 % Neut % (Auto) 77.6 % Lymph % (Auto) 13.7 % [place] % (Auto) 6.8 % Eos % (Auto) 0.8 % Baso % (Auto) 0.6 % Neut # (Auto) 6.08 (1.40-6.50) K/uL Lymph # (Auto) 1.07 L (1.20-3.40) K/uL [place] # (Auto) 0.53 (0.11-0.59) K/uL Eos # (Auto) 0.06 (0.00-0.50) K/uL Baso # (Auto) 0.05 (0.00-0.20) K/uL Immature Gran # (Auto) 0.04 (0.01-0.20) K/uL Sodium 140 (136-145) mmol/L Potassium 3.9 (3.5-5.1) mmol/L Chloride 104 (98-107) mmol/L Carbon Dioxide 29 (21-32) mmol/L Anion Gap 7 (3-11) BUN 12 (6-23) mg/dl Creatinine 0.51 L (0.6-1.2) mg/dl Est Cr Clr Drug Dosing Not Reportable eGFR 103.53 BUN/Creatinine Ratio 23.5 H (10-20) Glucose 120 H (70-99(Fasting)) mg/dl Calcium 9.7 (8.6-10.3) mg/dl Total Bilirubin 0.4 (0.2-1.0) mg/dl AST 25 (13-39) U/L ALT 24 (7-52) U/L Alkaline Phosphatase 122 H (34-104) U/L Total Protein 7.1 (6.0-8.3) gm/dl Albumin 4.1 (3.4-5.0) gm/dl Globulin 3.0 (2.5-4.0) gm/dl Albumin/Globulin Ratio 1.4 (0.9-2) Administered Medications Discontinued Medications Morphine Sulfate (Morphine Sulfate 4 Mg/Ml 1 Ml Carp\Vial) 4 mg IV NOW STA Stop: 12/25/24 12:13 Last Admin: 12/25/24 12:19 Dose: 4 mg Documented By: QGV Morphine Sulfate (Morphine Sulfate 2 Mg/Ml Carp) 2 mg IV NOW STA Stop: 12/25/24 12:35 Last Admin: 12/25/24 13:06 Dose: 2 mg Documented By: QGV Imaging Data Radiologist's Impression: Lumbar Spine X-Ray 12/25/24 12:12 XR lumbar spine 2-3V CLINICAL HISTORY: fall pain history of a recent fusion COMPARISON STUDY: Lumbar MRI dated 10/23/2024 FINDINGS: 4 views of the lumbar spine demonstrate an L3-S1 fusion with intrapedicle screws and posterior metal bars. There is also intervertebral body disc spacers at L4-5 and 5. Since the prior studies, there is a new compression fracture of L3 with depression of the superior endplate and exposure of the tips of the pedicle screws into the L2-L3 disc space. There is diffuse osteoporosis throughout the visualized portion of the spine. IMPRESSION: Status post L3-S1 laminectomy and fusion with intact hardware. However, the L3 vertebral body has undergone a compression fracture with depression of the superior endplate exposing the intact pedicle screws superiorly. ACT 112: Negative or not required by law. Electronically signed by: Candelaria Pardo M.D. 12/25/2024 1:04 PM Discharge Plan Visit Data Chief Complaint: Back Injury/Pain Stated Complaint: BACK PAIN, DOC SENT ED Provider: Godwin Hayden Discharge Problem: Fall, Closed compression fracture of L3 vertebra, History of lumbosacral spine surgery, Sciatic leg pain Patient Disposition: Being Evaluated by Surgeon Forms Stand Alone Forms: [facility] [place] Prescriptions Prescriptions: No Action tramadol 50 mg tablet 50 mg PO BID diclofenac sodium 75 mg tablet,delayed release (DR/EC) 75 mg PO BID PRN (Reason: Pain) Rx Instructions: only using it 1x/day because it upsets her stomach docusate sodium [Colace] 100 mg capsule 100 mg PO BID gabapentin 800 mg tablet 800 mg PO TID Qty: 90 3RF cyclobenzaprine 5 mg tablet 5 mg PO HS Amberen Menopause Support 2 cap PO QAM cholecalciferol (vitamin D3) [Vitamin D3] 125 mcg (5,000 unit) Tablet 125 mcg PO QAM Black Elderbery Gummies 2 tab PO QAM Brain Health 6 Function 1 cap PO QAM Energy Multivitamin 1 tab PO QAM Jones Xl Jones Support 2 cap PO BID tramadol 50 mg tablet 50 mg PO Q6H PRN (Reason: pain, moderate) Qty: 30 0RF oxycodone 5 mg tablet 5 mg PO Q6H PRN (Reason: pain) Qty: 30 0RF cyanocobalamin (vitamin B-12) 500 mcg Tablet 500 mcg PO QAM Qty: 30 0RF cephalexin 500 mg capsule 500 mg PO BID Qty: 6 0RF Referrals Referrals: Randa Lisa [Primary Care Provider] - Discharge Problem: Fall Qualifiers: Encounter type: initial encounter Qualified Code(s): W19.XXXA - Unspecified fall, initial encounter Closed compression fracture of L3 vertebra Qualifiers: Encounter type: initial encounter Qualified Code(s): S32.030A - Wedge compression fracture of third lumbar vertebra, initial encounter for closed fracture
[2024-12-25 12:38] LABS: Basophils # (auto) 0.05 K/uL (0.00-0.20); Basophils % (auto) 0.6 %; Eosinophils # (auto) 0.06 K/uL (0.00-0.50); Eosinophils % (auto) 0.8 %; Hematocrit (blood only) 31.5 % (37.0-47.0); Hemoglobin 10.7 g/dl (12.0-16.0); Immature Granulocytes # (auto) 0.04 K/uL (0.01-0.20); Immature Granulocytes % (auto) 0.5 %; Lymphocytes # (auto) 1.07 K/uL (1.20-3.40); Lymphocytes % (auto) 13.7 %; Mean Corpuscular Hemoglobin 33.8 pg (25.0-34.0); Mean Corpuscular Volume 99.4 fL (80.0-100.0); Mean Platelet Volume 8.7 fL (9.4-12.4); Monocytes # (auto) 0.53 K/uL (0.11-0.59); Monocytes % (auto) 6.8 %; Neutrophils # (auto) 6.08 K/uL (1.40-6.50); Neutrophils % (auto) 77.6 %; Platelet Count 332 K/uL (130-400); RDW Coefficient of Variation 12.1 % (11.5-14.5); RDW Standard Deviation 44.4 fL (36.4-46.3); Red Blood Count 3.17 M/uL (4.20-5.40); White Blood Count 7.83 K/ul (4.8-10.8)
[2024-12-25 12:57] LABS: Alanine Aminotransferase 24 U/L (7-52); Albumin Globulin Ratio 1.4 (0.9-2); Albumin Level 4.1 gm/dl (3.4-5.0); Alkaline Phosphatase 122 U/L (34-104); Anion Gap 7 (3-11); Aspartate Aminotransferase 25 U/L (13-39); BUN Creatinine Ratio 23.5 (10-20); Bilirubin,Total 0.4 mg/dl (0.2-1.0); Blood Urea Nitrogen 12 mg/dl (6-23); Calcium 9.7 mg/dl (8.6-10.3); Carbon Dioxide 29 mmol/L (21-32); Chloride 104 mmol/L (98-107); Glucose 120 mg/dl (70-99(Fasting)); Potassium 3.9 mmol/L (3.5-5.1); Sodium 140 mmol/L (136-145); Total Protein 7.1 gm/dl (6.0-8.3)
[2024-12-25] MEDS: MoRPHine SULFATE 2 MG/ML CARP IV STA (13:06)
--- NOTE | 2024-12-25 13:06 | XRay Report ---
XR lumbar spine 2-3V CLINICAL HISTORY: fall pain history of a recent fusion COMPARISON STUDY: Lumbar MRI dated 10/23/2024 FINDINGS: 4 views of the lumbar spine demonstrate an L3-S1 fusion with intrapedicle screws and senior biostatistician/group leader ior metal bars. There is also intervertebral body disc spacers at L4-5 and 5. Since the prior studies, there is a new compression fracture of L3 with depression of the superior en dplate and exposure of the tips of the pedicle screws into the L2-L3 disc space. There is diffuse osteoporosis throughout the visualized portion of the spine. IMPRESSION: Status post L3-S1 laminectomy and fusion with intact hardware. However, the L3 vertebral body has undergone a compression fracture with depression of the superior endplate exposing the inta ct pedicle screws superiorly. ACT 112: Negative or not required by law. Electronically signed by: Candelaria Pardo M.D. 12/25/2024 1:04 PM
[2024-12-25 13:10] LABS: Partial Thromboplastin Time 28 Seconds (21-31); Prothrombin Time 10.9 Seconds (9.0-12.0)
--- NOTE | 2024-12-25 13:32 | CT Scan Report ---
CT OF THE LUMBAR SPINE CLINICAL HISTORY: fall, pain to L leg, recent surgery COMPARISON STUDY: Lumbar spine MRI October 23, 2024. Lumbar spine radiographs performed earlier today . TECHNIQUE: Helical axial images of the lumbar spine were obtained. Sagittal and coronal reconstruct ions were viewed. Automated exposure control was utilized for the study. A dose lowering technique was utilized adhering to the principles of ALARA. FINDINGS: For purposes of numbering on this exam, the L5-S1 disc space is assigned to axial image 275 of 261. There is mild rightward curvature of the lumbar spine. There are postoperative findings cons istent with L3-S1 decompression and bilateral pedicle screw fusion. There are L4-L5 and L5-S1 discect omies with interbody spacer placement. This exam is compromised by streak artifact related to the maryellen gical hardware. The central canal and neural foramen are suboptimally assessed given CT technique. Ol d L4 and L5 compression fractures are again noted. The T12 compression fracture is also chronic. Ther e has been interval development of a L3 compression fracture with moderate loss of vertebral body hei ght. Involvement of the posterior elements would be difficult to exclude on this exam given artifact from the hardware and there are suspected fractures extending through the pedicles. The bilateral L3 pedicle screw slightly extend into the disc space. There is slight loss of height of the inferior end plate of L2. Paravertebral stranding is present. IMPRESSION: 1. Status post L3-S1 decompression and fusion with L4-L5 and L5-S1 discectomies. Hardware intact. 2. Moderate L3 compression fracture which may extend into the posterior elements. This fracture is ag e indeterminate but new since December 05, 2024. Evaluation difficult given streak artifact from the hardware. Bilateral L3 pedicle screw slightly extend into the disc space. 3. Suspected mild compression fracture of the inferior endplate of L2. 4. Old T12, L4 and L5 fractures. 5. Mild paravertebral stranding. This may be postsurgical or posttraumatic. 6. Suboptimal evaluation of the central canal and neural foramen given artifact and CT technique. ACT 112: Negative or not required by law. Electronically signed by: Stefan Gaytan M.D. 12/25/2024 1:30 PM
--- NOTE | 2024-12-25 14:52 | History & Physical Report ---
Date of Service December 25, 2024 Assessment & Plan (1) Closed compression fracture of L3 vertebra: Plan: Assessment #1 L2 and L3 compression fractures. #2 loss of fixation of lumbar hardware. #3 left sciatica. Plan at this time in light of her CAT scan and x-ray imaging am recommending urgent revision surgery. She would require kyphoplasty of L2 and L3 with revision of the instrumentation and fusion at the L3-L4 level. Risk benefits pros cons of terms aneta in detail. At this time which patient will be admitted for pain control made n.p.o. and plan for surgery tomorrow. History of Present Illness Chief Complaint: Back and left leg pain Primary Care Provider: Randa Lisa This 64-year-old female known to me the presents the emergency room this morning with worsening back pain and left sciatica. She was seen in our office last week and there was some concern about a superior endplate fracture of L3. Imaging today in the emergency room does continue to demonstrate loss of height of the L3 vertebral body perhaps an inferior endplate fracture of L2. She describes severe pain with standing and ambulation. She is comfortable lying supine. She denies any numbness or tingling to her legs at this time. She does have a fall last week that precipitated her current symptom complex. Allergies Allergy/AdvReac Type Severity Reaction Status Date / Time No Known Allergies Allergy Unknown Verified 12/05/24 11:24 Home Medications Medication Instructions Recorded Confirmed Type diclofenac sodium 75 mg 75 mg PO BID PRN Pain 03/20/23 12/25/24 History tablet,delayed release docusate sodium 100 mg capsule 100 mg PO BID 01/02/24 12/25/24 History (Colace) gabapentin 800 mg tablet 800 mg PO TID #90 tabs 01/02/24 12/25/24 Rx cyclobenzaprine 5 mg tablet 5 mg PO HS 07/07/24 12/25/24 History Amberen Menopause Support 2 cap PO QAM 11/13/24 12/25/24 History Black Elderbery Gummies 2 tab PO QAM 11/13/24 12/25/24 History Brain Health 6 Function 1 cap PO QAM 11/13/24 12/25/24 History Energy Multivitamin 1 tab PO QAM 11/13/24 12/25/24 History Picabo Xl Picabo Support 2 cap PO BID 11/13/24 12/25/24 History cholecalciferol (vitamin D3) 125 125 mcg PO QAM 11/13/24 12/25/24 History mcg (5,000 unit) tablet (Vitamin D3) cyanocobalamin (vitamin B-12) 500 500 mcg PO QAM #30 tabs 12/06/24 12/25/24 Rx mcg tablet oxycodone 5 mg tablet 5 mg PO Q6H PRN pain #30 tabs 12/06/24 12/25/24 Rx tramadol 50 mg tablet 50 mg PO Q6H PRN pain, moderate 12/06/24 12/25/24 Rx #30 tabs Past Med/Surg History Problem List (Updated 12/25/24 @ 13:28 by Godwin Hayden M.D.) Sciatic leg pain (Acute) History of lumbosacral spine surgery (Acute) Closed compression fracture of L3 vertebra (Acute) Fall (Acute) Abnormal urinalysis Multilevel lumbosacral spondylosis with radiculopathy Lumbar spondylosis Morbid obesity Lumbar radiculopathy Medical History Lumbar radiculopathy Restrictive airway disease denies chronic issues-denies inhaler use 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 Osteoarthritis History of kidney stones (~2009) Surgical History History of lithotripsy History of salpingectomy History of bilateral tubal ligation H/O shoulder surgery right/left History of total knee replacement right/left History of colonoscopy History of cholecystectomy History of tooth extraction History of tonsillectomy Family History Father Family history of diabetes mellitus Other No family history of adverse response to anesthesia Social History Smoking Status: Never smoker Second Hand Exposure: Yes (as a child); Do You Dip or Chew Tobacco: No; Hx Alcohol Use: No Hx Substance Use: No Preferred Language: Bengali Communication Ability: Effective Visual Impairment: No Limitations Hearing Ability: Normal Personal Fitness Trainer Required: No Beliefs That Will Affect Care: None marital status: engaged Current Living Situation: Significant Other current occupational status: employed current occupation: [employer] Feels Safe at Home: Yes Assistive Devices: Walker Physical Exam Physical Exam: On exam the patient is in bed. Her is at the bedside. She has 4+/5 bilateral plantarflexion dorsiflexion quadriceps. She is marked tenderness palpation of the bilateral trochanteric regions and IT bands. The incision is healing appropriately. Results & Data Results & Data Vital Signs (Past 12 Hours) Vital Signs Temp Pulse Pulse Resp BP BP Pulse Ox 12/25/24 14:40 84 20 159/90 H 97 12/25/24 11:41 36.6 C 86 18 152/78 H 97 O2 Del Method 12/25/24 14:40 Room Air 12/25/24 11:41 Room Air Code Status & VTE Plan VTE Prophylaxis Plan VTE Prophylaxis will be ordered: Yes (1) Closed compression fracture of L3 vertebra Encounter type: initial encounter Qualified Code(s): S32.030A - Wedge compression fracture of third lumbar vertebra, initial encounter for closed fracture
[2024-12-25] MEDS ORDERED: HYDROmorphone INJ 1 MG/ML SYRINGE IV PRN (15:12)
[2024-12-25] MEDS ORDERED: METOCLOPRAMIDE HCL INJ 5 MG/ML 2 ML VIAL IV PRN (15:12)
[2024-12-25] MEDS ORDERED: NALOXONE HCL 0.4 MG/1 ML VIAL/CARP IV PRN (15:12)
[2024-12-25] MEDS ORDERED: ACETAMINOPHEN 500 MG TAB PO PRN (15:12)
[2024-12-25] MEDS ORDERED: LORazepam 2 MG/1 ML VIAL IV PRN (15:12)
[2024-12-25] MEDS ORDERED: ONDANSETRON INJ 2 MG/ML 2 ML VIAL IV PRN (15:12)
[2024-12-25] MEDS ORDERED: ACETAMINOPHEN 1,000 MG/100 ML VIAL IV PRN (15:12)
[2024-12-25] MEDS ORDERED: PROMETHAZINE 12.5 MG/50.5 ML BAG IV PRN (15:12)
[2024-12-25] MEDS ORDERED: ONDANSETRON 4 MG OD TAB PO PRN (15:12)
[2024-12-25] MEDS ORDERED: oxyCODONE HCL IR 5 MG TAB (IMMEDIATE RELEASE) PO PRN (15:12)
[2024-12-25] MEDS ORDERED: LORazepam 0.5 MG TAB PO PRN (15:12)
[2024-12-25] MEDS: GABAPENTIN 800 MG TAB PO SCH (15:40)
[2024-12-25] MEDS: HYDROmorphone INJ 0.5 MG/0.5 ML SYR IV PRN (15:40)
--- NOTE | 2024-12-25 16:06 | Hospitalist Consultation ---
Date of Consultation December 25, 2024 Assessment & Plan (1) Closed compression fracture of L3 vertebra: Assessment: 1. Closed compression fracture of L3 vertebrae with increasing radicular and sciatic pain. Tentative plan is to go to the OR tomorrow with Ortho spine surgery for planned urgent revision surgery. She would require kyphoplasty of L2 and L3 with revision of the instrumentation and fusion at the L3-L4 level. As documented above in history of present illness the patient is postoperative day 20 from "#1 lumbar decompression with bilateral medial facetectomies and foraminotomies L3-L4 L4-L5 L5-S1. #2 posterior spinal fusion L3-L4 L3-L4 L4-5. #3 placed posterior segmental instrumentation L3-L5. #4 interbody fusion L4-L5 L5-S1. #5 placement of Spira 12 x 26 mm x 2 at L4-5 and 13 x 26 mm x 2 and L5- S1. #6 placement locally harvested morselized autograft posterior gutters per #7 placement of infuse collagen sponge, with Koros in the posterior lateral gutters and os design interbody space. #8 application of versa wrap of the exposed dura." The patient has been made n.p.o. after midnight. She just underwent general anesthesia 3 weeks ago. She did this without difficulty. She does not endorse any cardiac or pulmonary symptoms whatsoever. Therefore she would be low risk for general anesthesia. 2. Obesity. Stable. 3. Anemia. Appears somewhat chronic. She denies any bowel changes black tarry stools or bloody stools. Will obtain iron studies and stool for occult blood for completeness to workup her anemia I suspect probable underlying iron deficiency. 4. Mild elevation in alkaline phosphatase. 122. Probably secondary to acute fracture. Will monitor. I do not have a previous to compare. Plan: As discussed above. Please refer to orders for further planning. We thank you for the opportunity to participate in the care of Dayana she continues to convalesce her lumbar spine injury and her upcoming lumbar spine surgery. We will continue to follow with you daily and as needed. History of Present Illness Reason for Consultation: Perioperative medical management. Attending Physician: Jared Dye, History of Present Illness This is a 64-year-old female who is postop day 20 from the following procedure: "#1 lumbar decompression with bilateral medial facetectomies and foraminotomies L3-L4 L4-L5 L5-S1. #2 posterior spinal fusion L3-L4 L3-L4 L4-5. #3 placed posterior segmental instrumentation L3-L5. #4 interbody fusion L4-L5 L5-S1. #5 placement of Spira 12 x 26 mm x 2 at L4-5 and 13 x 26 mm x 2 and L5-S1. #6 placement locally harvested morselized autograft posterior gutters per #7 placement of infuse collagen sponge, with Koros in the posterior lateral gutters and os design interbody space. #8 application of versa wrap of the exposed dura." She has been following with orthospine surgery as an outpatient. Today she got worsening lumbar spine pain and radicular pain presented to the ER for further evaluation and treatment. CT of the lumbar spine demonstrated the following: "IMPRESSION: 1. Status post L3-S1 decompression and fusion with L4-L5 and L5-S1 discectomies. Hardware intact. 2. Moderate L3 compression fracture which may extend into the posterior elements. This fracture is age indeterminate but new since December 05, 2024. Evaluation difficult given streak artifact from the hardware. Bilateral L3 pedicle screw slightly extend into the disc space. 3. Suspected mild compression fracture of the inferior endplate of L2. 4. Old T12, L4 and L5 fractures. 5. Mild paravertebral stranding. This may be postsurgical or posttraumatic. 6. Suboptimal evaluation of the central canal and neural foramen given artifact and CT technique." The patient was admitted to the service of orthospine surgery and plan is for surgery in the a.m. and tentatively plan for "urgent revision surgery. She would require kyphoplasty of L2 and L3 with revision of the instrumentation and fusion at the L3-L4 level" Hospitalist consultation has been obtained for perioperative medical management. Allergies Allergy/AdvReac Type Severity Reaction Status Date / Time No Known Allergies Allergy Unknown Verified 12/05/24 11:24 Home Medications Medication Instructions Recorded Confirmed Type diclofenac sodium 75 mg 75 mg PO BID PRN Pain 03/20/23 12/25/24 History tablet,delayed release docusate sodium 100 mg capsule 100 mg PO BID 01/02/24 12/25/24 History (Colace) gabapentin 800 mg tablet 800 mg PO TID #90 tabs 01/02/24 12/25/24 Rx cyclobenzaprine 5 mg tablet 5 mg PO HS 07/07/24 12/25/24 History Amberen Menopause Support 2 cap PO QAM 11/13/24 12/25/24 History Black Elderbery Gummies 2 tab PO QAM 11/13/24 12/25/24 History Brain Health 6 Function 1 cap PO QAM 11/13/24 12/25/24 History Energy Multivitamin 1 tab PO QAM 11/13/24 12/25/24 History [place] Xl [place] Support 2 cap PO BID 11/13/24 12/25/24 History cholecalciferol (vitamin D3) 125 125 mcg PO QAM 11/13/24 12/25/24 History mcg (5,000 unit) tablet (Vitamin D3) cyanocobalamin (vitamin B-12) 500 500 mcg PO QAM #30 tabs 12/06/24 12/25/24 Rx mcg tablet oxycodone 5 mg tablet 5 mg PO Q6H PRN pain #30 tabs 12/06/24 12/25/24 Rx tramadol 50 mg tablet 50 mg PO Q6H PRN pain, moderate 12/06/24 12/25/24 Rx #30 tabs Patient History Medical History Lumbar radiculopathy Restrictive airway disease denies chronic issues-denies inhaler use 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 Osteoarthritis History of kidney stones (~2009) Surgical History History of lithotripsy History of salpingectomy History of bilateral tubal ligation H/O shoulder surgery right/left History of total knee replacement right/left History of colonoscopy History of cholecystectomy History of tooth extraction History of tonsillectomy Family History Father Family history of diabetes mellitus Other No family history of adverse response to anesthesia Social History Smoking Status: Never smoker Second Hand Exposure: Yes (as a child); Do You Dip or Chew Tobacco: No; Hx Alcohol Use: No Hx Substance Use: No Preferred Language: Lithuanian Communication Ability: Effective Visual Impairment: No Limitations Hearing Ability: Normal Manager Compliance Required: No Beliefs That Will Affect Care: None marital status: engaged Current Living Situation: Significant Other current occupational status: employed current occupation: cleans houses Other Information That Helps Us Care for You: No Feels Safe at Home: Yes Safety Concerns: Feels Safe At This Time Assistive Devices: Denture - Upper, Denture - Lower, Glasses and Walker Review of Systems Review of Systems: A 10 point review of system was obtained and unless otherwise stated here or in history of present illness are negative and noncontributory to chief complaint. Physical Exam Physical Exam: In General: In general 64-year-old female is alert and oriented x 3 at the time of my exam. She is accompanied by her fiandreia Guzman at the time of my examination whom she grants permission to be in the room during my interview and exam. HEENT: Normocephalic atraumatic pupils are equal round and reactive to light bilaterally. No scleral icterus no conjunctival injection external auditory canals are patent septum is in the midline nose is without discharge oral mucosa is pink and moist without lesion. NECK: Supple no rigidity no lymphadenopathy no thyromegaly no carotid bruits no JVD no masses. HEART: Regular rate and rhythm I do not appreciate any ectopy or rub. No murmur. LUNGS: Clear to auscultation bilaterally and anteriorly with no evidence of adventitious sounds/wheezes rales or rhonchi. ABDOMEN: Soft nontender, no rebound, no peritoneal signs, positive bowel sounds, no appreciable organomegaly. EXTREMITIES: Intact, no peripheral cyanosis, clubbing or edema. Strength is adequate in extremities x4, no pathological reflexes. NEUROLOGICAL: Cranial nerves II through XII are grossly intact with no focal deficit elicited upon examination. Results & Data Results & Data Vital Signs (Past 12 Hours) Vital Signs Temp Pulse Pulse Resp BP BP Pulse Ox 12/25/24 15:49 12/25/24 15: 36.6 C 80 16 147/72 H 96 12/25/24 14:40 84 20 159/90 H 97 12/25/24 11:41 36.6 C 86 18 152/78 H 97 O2 Del Method 12/25/24 15:49 Room Air 12/25/24 15:25 Room Air 12/25/24 14:40 Room Air 12/25/24 11:41 Room Air PG Care Time/CCT Total # of Minutes Spent Total Time Spent with Patient: Total time spent is greater than 50% in coordination of care (as documented) at patient's floor/unit and/or counseling patient: Coding Level of Care Code 31268 IN/OBS CONSULT LVL 4,60M Diagnoses Closed compression fracture of L3 vertebra S32.030A Encounter type: initial encounter (1) Closed compression fracture of L3 vertebra Encounter type: initial encounter Qualified Code(s): S32.030A - Wedge compression fracture of third lumbar vertebra, initial encounter for closed fracture
[2024-12-25] MEDS: traMADol HCL 50 MG TABLET PO PRN (17:23)
[2024-12-26 06:21] LABS: Basophils # (auto) 0.04 K/uL (0.00-0.20); Basophils % (auto) 0.4 %; Eosinophils # (auto) 0.08 K/uL (0.00-0.50); Eosinophils % (auto) 0.9 %; Hematocrit (blood only) 33.4 % (37.0-47.0); Immature Granulocytes # (auto) 0.05 K/uL (0.01-0.20); Immature Granulocytes % (auto) 0.5 %; Lymphocytes # (auto) 1.29 K/uL (1.20-3.40); Lymphocytes % (auto) 13.9 %; Mean Corpuscular Hemoglobin 33.1 pg (25.0-34.0); Mean Corpuscular Hgb Conc 32.9 g/dL (32.0-36.0); Mean Corpuscular Volume 100.6 fL (80.0-100.0); Mean Platelet Volume 8.5 fL (9.4-12.4); Monocytes % (auto) 6.5 %; Neutrophils # (auto) 7.23 K/uL (1.40-6.50); Neutrophils % (auto) 77.8 %; Platelet Count 365 K/uL (130-400); RDW Coefficient of Variation 12.4 % (11.5-14.5); Red Blood Count 3.32 M/uL (4.20-5.40); White Blood Count 9.29 K/ul (4.8-10.8)
[2024-12-26 06:48] LABS: Albumin Globulin Ratio 1.4 (0.9-2); Albumin Level 4.4 gm/dl (3.4-5.0); Bilirubin,Total 0.5 mg/dl (0.2-1.0); Calcium 9.6 mg/dl (8.6-10.3); Chol HDL Ratio 3.6 (0-5); Creatinine Clr Calc Pharmacy 103.8 ml/min; Globulin 3.1 gm/dl (2.5-4.0); Magnesium 1.9 mg/dl (1.7-2.4); Potassium 3.9 mmol/L (3.5-5.1); Total Protein 7.5 gm/dl (6.0-8.3)
[2024-12-26 07:02] LABS: Thyroid Stimulating Hormone 1.442 uIu/ml (0.300-4.500)
[2024-12-26] MEDS ORDERED: HYDROmorphone INJ 2 MG/ML SYR/VIAL ONE (10:27)
[2024-12-26] MEDS ORDERED: PROPOFOL IV EMULSION 10 MG/ML 20 ML VIAL IV ONE (10:52)
[2024-12-26] MEDS ORDERED: fentaNYL citrate PF 100 MCG/2 ML VIAL ONE (10:52)
[2024-12-26] MEDS ORDERED: DEXAMETHASONE SOD INJ 4 MG/ML VIAL ONE (10:52)
[2024-12-26] MEDS ORDERED: MIDAZOLAM HCL 1 MG/ML 2ML VIAL ONE (10:52)
[2024-12-26] MEDS ORDERED: ONDANSETRON INJ 2 MG/ML 2 ML VIAL ONE ×2 (10:52→14:37)
[2024-12-26] MEDS ORDERED: LIDOCAINE 2% 2 ML VIAL/AMP(20MG/ML) INFIL ONE (10:52)
[2024-12-26] MEDS ORDERED: LARYING-O-JET KIT (LTA) ONE (10:53)
[2024-12-26] MEDS ORDERED: ROCURONIUM BROMIDE 10 MG/ML 5 ML VIAL IV ONE (10:53)
[2024-12-26] MEDS: LACTATED RINGER'S 1,000 ML IV SCH (12:45)
--- NOTE | 2024-12-26 12:56 | Hospitalist Progress Note ---
Date of Service December 26, 2024 Assessment & Plan (1) Closed compression fracture of L3 vertebra: (2) Elevated alkaline phosphatase level: (3) Anemia: Billy Anne is a 64F with a PMhx of lumbar radiculapathy and elevated hemidiaphragm who presented to the ED for worsening with back pain. Hospitalist consulted for medical management. Closed compression fracture of L3 vertebrae with increasing radicular and sciatic pain. Recently back surgery with Dr. Dye 12/06 for similar. Plan is for OR today with Dr. Dye DVT prophylaxis / pain control/ abx/ discharge planning per primary team She just underwent general anesthesia 3 weeks ago without issue. No cardiac or pulm symptoms - medically optimized for surgery. Elevated alk phos 122 --> 131. No other LFT elevations suspect seconday to fracture Anemia - Chronic While MCV is elevated, recent B12/folate have been normal. Fe studies consitent with JOON - can start PO iron supplementation post operatively when bowel function improves Can check occult stool for completeness, hx of colonscopy 2020. Hyperlipidemia Mild with total Cholesterol 214 with HDL 60 - defer to PCP for start medication. Thank you for allowing us to participate in the care of this patient, please reach out with any questions or concerns. Medicine will continue to follow for AM labs Admission and Anticipated Discharge Date Admission Date: December 25, 2024 Subjective patient seen lying in bed, pain controlled at this time does state she had some pain free days at home prior to returnign to the hospital unsure when her last BM was does not think she has been told that she was iron deficient before. has had a colonscopy before - does not think they found anything Review of Systems Review of Systems: All systems reviewed & are unremarkable except as noted in Subjective Physical Exam Physical Exam: General: NAD, VS as above Resp: normal respiratory effort, lungs clear to auscultation CV: RRR, no murmur, Abd: normal bowel sounds, non tender, soft Extremities: Moves all extremities, Neuro: A&O x3, Results & Data Results & Data Vital Signs (Past 12 Hours) Vital Signs Temp Pulse Resp BP Pulse Ox O2 Del Method 12/26/24 12:04 71 16 166/84 H 96 Room Air 12/26/24 09:38 Room Air 12/26/24 07:06 97.7 F 97 H 18 170/93 H 95 Room Air Laboratory Results cbc and chemistry reviewed Diagnostic Findings CT L spine reviewed PG Care Time/CCT Total # of Minutes Spent Total Time Spent with Patient: Total time spent is greater than 50% in coordination of care (as documented) at patient's floor/unit and/or counseling patient: Coding Level of Care Code 60804 SUB INP/OBS CARE 3/50MIN Diagnoses Closed compression fracture of L3 vertebra S32.030A Encounter type: initial encounter Elevated alkaline phosphatase level R74.8 Anemia D64.9 (1) Closed compression fracture of L3 vertebra Encounter type: initial encounter Qualified Code(s): S32.030A - Wedge nida alma fracture of third lumbar vertebra, initial encounter for closed fracture
--- NOTE | 2024-12-26 13:00 | Anesthesiology Consultation ---
Date of Service December 26, 2024 Assessment & Plan Chart Review Chart Review: Acceptable Risk for Surgery and Patient NOT seen in Pre Admission Testing Consults Requested none ASA ASA3 Proposed Anesthesia Anesthesia Type: General History Surgery Operation Date: 12/26/24 12:45 Proposed Procedures p L3-L4 Hardware Removal and Fusion Revision, L3 Kyphoplasty - Jared Dye DO Height/Weight Height: 5 ft 1 in Weight: 104.2 kg Allergies Allergy/AdvReac Type Severity Reaction Status Date / Time No Known Allergies Allergy Unknown Verified 12/05/24 11:24 Medications Home Medications Medication Instructions Recorded Confirmed Last Taken diclofenac sodium 75 mg 75 mg PO BID PRN Pain 03/20/23 12/25/24 12/04/24 22:00 tablet,delayed release docusate sodium 100 mg capsule 100 mg PO BID 01/02/24 12/25/24 12/04/24 09:00 (Colace) gabapentin 800 mg tablet 800 mg PO TID #90 tabs 01/02/24 12/25/24 12/05/24 10:00 cyclobenzaprine 5 mg tablet 5 mg PO HS 07/07/24 12/25/24 12/04/24 22:00 Ambe[place] Menopause Support 2 cap PO QAM 11/13/24 12/25/24 11/21/24 [place] Gummies 2 tab PO QAM 11/13/24 12/25/24 11/21/24 Brain Health 6 Function 1 cap PO QAM 11/13/24 12/25/24 11/21/24 Energy Multivitamin 1 tab PO QAM 11/13/24 12/25/24 11/21/24 [place] Xl [place] Support 2 cap PO BID 11/13/24 12/25/24 11/21/24 cholecalciferol (vitamin D3) 125 125 mcg PO QAM 11/13/24 12/25/24 12/04/24 09:00 mcg (5,000 unit) tablet (Vitamin D3) cyanocobalamin (vitamin B-12) 500 500 mcg PO QAM #30 tabs 12/06/24 12/25/24 Unknown mcg tablet oxycodone 5 mg tablet 5 mg PO Q6H PRN pain #30 tabs 12/06/24 12/25/24 Unknown tramadol 50 mg tablet 50 mg PO Q6H PRN pain, moderate 12/06/24 12/25/24 Unknown #30 tabs Active Medications Generic Name Dose Route Start Last Admin Trade Name Freq PRN Reason Stop Dose Admin Gabapentin 800 mg 12/25/24 15:12 12/26/24 08:19 Gabapentin 800 Mg Tab PO 01/24/25 15:11 800 mg TID MALIK Administration Hydromorphone HCl 0.5 mg 12/25/24 15:12 12/25/24 15:40 Hydromorphone Inj 0.5 Mg/0.5 Ml Syr IV 01/08/25 15:11 0.5 mg Q3H PRN Administration MOD pain (scale 4-6) & Pre PT Lactated Ringer's 1,000 mls @ 15 mls/hr 12/26/24 12:45 12/26/24 12:45 Lr IV 12/27/24 12:44 15 mls/hr .Q24H MALIK Administration Tramadol HCl 50 - 100 mg 12/25/24 15:12 12/25/24 17:23 Tramadol Hcl 50 Mg Tablet PO 01/24/25 15:11 100 mg Q4H PRN Administration Moderate-Severe pain & Pre PT NPO Date Last Intake of Fluids: 12/25/24 Time Last Intake of Fluids: 22:00 Last Intake of Fluids Comment: sip of water with scheduled medication Date Last Intake of Solids: 12/25/24 Time Last Intake of Solids: 19:00 Past Medical History Medical History Lumbar radiculopathy Restrictive airway disease denies chronic issues-denies inhaler use 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 Osteoarthritis History of kidney stones (~2009) Exercise / Class Metabolic Activity II 4-5 Yardwork/Stairs/Walk up hill Past Family History Family History Father Family history of diabetes mellitus Other No family history of adverse response to anesthesia Past Surgical History Surgical History History of lithotripsy History of salpingectomy History of bilateral tubal ligation H/O shoulder surgery right/left History of total knee replacement right/left History of colonoscopy History of cholecystectomy History of tooth extraction History of tonsillectomy Past Anesthesia History No Hx of Anesthesia Complications and No Family Hx of Anesthesia Complications History of PONV No Hx of PONV and No Hx of Motion Sickness Social History Smoking Status: Never smoker Do You Dip or Chew Tobacco: No Hx Alcohol Use: No Hx Substance Use: No substance use type: does not use Physical Exam Vital Signs Last Vital Signs Temp 37 C 12/26/24 12:43 Pulse 80 12/26/24 12:43 Resp 20 12/26/24 12:43 BP 162/84 H 12/26/24 12:43 Pulse Ox 97 12/26/24 12:43 O2 Del Method Room Air 12/26/24 12:43 Testing Laboratory Results 12/26/24 06:01 12/26/24 06:01 PT 10.9 Seconds (9.0-12.0) 12/25/24 12:20 INR 1.0 (0.9-1.1) 12/25/24 12:20 APTT 28 Seconds (21-31) 12/25/24 12:20 Electrocardiogram Date: 11/14/24 Findings: + NSR @ (SR @ 85 w/ PAC's) Chest X-Ray Date: 12/02/24 Findings: + R hemidiaphragm elevation (suggestive of pleural effusion)
--- NOTE | 2024-12-26 13:20 | History & Physical Bridge Note ---
Date of Service December 26, 2024 History & Physical Bridge Note I have examined the patient, reviewed the History & Physical and in the interval since the performance of the History & Physical I have noted the following changes of clinical significance: no changes noted Patient presents with marked decline in status. She has inability to ambulate secondary to severe back and left leg pain. She is only comfortable in a supine position. Imaging demonstrates evidence of compression fractures of L2-L3 with loss of fixation and pedicle screw fractures at L3. Subsequently she is here for urgent stabilization. She would require revision fusion L3-L4 kyphoplasty L2 and L3.
[2024-12-26] MEDS: ceFAZolin 3000MG 3,000 MG/72.5 ML BAG IV SCH (13:54)
[2024-12-26] MEDS ORDERED: SUGAMMADEX SODIUM 200 MG/2 ML VIAL IV ONE (14:18)
[2024-12-26] MEDS ORDERED: ALBUMIN HUMAN 5% 12.5 GM/250 ML VIAL IV ONE (15:28)
[2024-12-26] MEDS: BUPIVACAINE/EPINEPHRINE 0.25% 1:200,000 30 ML VIAL ONE (16:00)
[2024-12-26] MEDS: ceFAZolin 330 MG/ML 1 GM VIAL ONE (16:01)
[2024-12-26] MEDS: FLOSEAL HEMOSTATIC MATRIX 10ML TOP ONE (16:01)
--- NOTE | 2024-12-26 16:11 | Operative Report ---
Post Operative Report Pre & Post Diagnosis Operation Date: 12/26/24 12:45 Pre-Op Diagnosis: #1 bilateral pedicle fractures of L3 with compression fracture of L3 and loss of pedicle screw fixation. #2 compression fracture of L2 #3 left sciatica. #4 morbid obesity Post-Op Diagnosis: Same I identified the patient and participated in the time-out.: Yes Procedure Operation Date: 12/26/24 12:45 Actual Procedures #1 removal of posterior instrumentation. #2 revision decompression with medial facetectomies and foraminotomies L3-L4. #3 kyphoplasty of L2 and L3 vertebral bodies. #4 posterior spinal fusion L2-L3. #5 revision fusion L3-L4. #6 interbody fusion L3-L4. #7 placement of Spira 13 x 26 mm cage at L3-L4. #8 placement of infuse collagen sponge, with Koros in the posterior gutters and os design in the interbody space. #9 placement of versa wrap of the exposed dura. Surgeon Jared Dye, DO Fitness/Wellness Director Garry Cardona Estimated Blood Loss 600 Findings See Below The patient is 5 foot 1 weighing over 104 kg with a BMI in excess of 43. This combined with an EBL of greater than 600 cc greater significant technical difficulty with positioning exposure and the procedure itself and at least 50% increased operative time. Recommending a modifier 22. Specimens None Indications This is a 64-year-old female who presents with marked decline in status evidence of unstable fracture and loss of pedicle screw fixation in the lumbar spine is here for urgent revision surgery. Description of Procedure Patient is met with identified informed consent obtained. Patient was then taken to the operative suite underwent sedation placed in a prone position on the Andrew table with chest pad and hip bolsters. All bony promises well- padded eyes inspected to ensure no external precipice upon the. This point the lumbar spine was prepped and draped in the normal sterile fashion. Sharp dissection with the assistance above the cartilage from down to and exposing the lamina and transverse processes of L2 and the instrumentation at L3-L4-L5 and S1 levels bilaterally. Then proceeded move the rods bilaterally. L3 pedicle screws were obviously loose and removed without difficulty. I did test the remaining screws. The L5 screws were loose bilaterally and subsequently replaced with a larger screws. I then performed a kyphoplasty of L2 and L3 with 20 mm Kyphon balloons at each level. After successful fill of cement within the vertebral bodies I placed pedicle screws and L2 bilaterally and new pedicle screws at L3. I then performed a revision complete decompression of L3 with bilateral medial facetectomies and foraminotomies to address any neural compression and any fragments on the nerve roots. By way of a transforaminal approach on the left complete discectomy of L3-L4 was performed endplates guarded to subcortical the bone and a 13 x 26 mm Spira cage filled with os design bone graft tapped in position. The proper size rods were then placed locked in final position bilaterally. The transverse processes of L2-L3-L4 burred to subcortical bleeding bone. Infuse collagen sponge, with Koros was placed in the posterior gutters. Versa wrap placed over the exposed dura. 15 round JYOTSNA drain inserted. Incision was then closed with 1 Vicryl fascia 2-0 Vicryl subcutaneously and 4 Monocryl for final skin closure. Steri-Strips sterile dressing placed. Patient waken taken to PACU in stable condition. Please note Garry Deleon was present at the entire procedure involved in patient positioning complex portion of the surgery and final skin closure. Lastly spinal cord monitoring was utilized at the procedure no changes noted. I attest to the content of the Intraoperative Record and any orders documented therein. Any exceptions are noted below.
--- NOTE | 2024-12-26 17:03 | Anesthesiology Progress Note ---
Date of Service December 26, 2024 Anesthesia Post Procedure Vital Signs Vital Signs: Temp Pulse Pulse Resp BP BP Pulse Ox 12/26/24 16:50 91 H 21 149/107 H 96 12/26/24 16:40 95 H 21 156/91 H 89 L 12/26/24 16:32 36.4 C L 96 H 16 158/86 H 98 12/26/24 12:43 37 C 80 20 162/84 H 97 12/26/24 12:04 71 16 166/84 H 96 12/26/24 09:38 12/26/24 07:06 36.5 C 97 H 18 170/93 H 95 12/25/24 23:03 36.7 C 86 16 167/81 H 92 O2 Del Method O2 Flow Rate 12/26/24 16:50 Nasal Cannula 2 12/26/24 16:40 Room Air 12/26/24 16:32 Oxymask 4 12/26/24 12:43 Room Air 12/26/24 12:04 Room Air 12/26/24 09:38 Room Air 12/26/24 07:06 Room Air 12/25/24 23:03 Room Air Pain Intensity Lower Back: Pain Intensity: 5 Transfer of Care Handoff Completed per policy Notes Mental Status: alert / awake / arousable and participated in evaluation Patient Amnestic to Procedure: Yes Nausea / Vomiting: adequately controlled Pain: adequately controlled Airway Patency, RR, SpO2: stable & adequate BP & HR: stable & adequate Hydration State: stable & adequate Anesthetic Complications: no major complications apparent and Pt Satisfied with anesthetic care
[2024-12-26] MEDS ORDERED: FAMOTIDINE 20 MG TAB PO PRN (17:06)
[2024-12-26] MEDS ORDERED: MAGNESIUM HYDROXIDE SUSP 30 ML UDC PO PRN (17:06)
[2024-12-26] MEDS ORDERED: HYDROmorphone INJ 0.5 MG/0.5 ML SYR IV PRN (17:06)
[2024-12-26] MEDS ORDERED: DO NOT ADMINISTER FLU VACCINE PRN (17:06)
[2024-12-26] MEDS ORDERED: LORazepam 2 MG/1 ML VIAL IV PRN (17:06)
[2024-12-26] MEDS ORDERED: ALUMINUM/MAGNESIUM SUSP 30 ML UDC PO PRN (17:06)
[2024-12-26] MEDS ORDERED: ACETAMINOPHEN 500 MG TAB PO PRN (17:06)
[2024-12-26] MEDS ORDERED: bisacodyL 10 MG SUPP PR PRN (17:06)
[2024-12-26] MEDS ORDERED: hydrOXYzine HCl 25 MG TAB PO PRN (17:06)
[2024-12-26] MEDS ORDERED: ONDANSETRON 4 MG OD TAB PO PRN (17:06)
[2024-12-26] MEDS ORDERED: METOCLOPRAMIDE HCL INJ 5 MG/ML 2 ML VIAL IV PRN (17:06)
[2024-12-26] MEDS ORDERED: ONDANSETRON INJ 2 MG/ML 2 ML VIAL IV PRN (17:06)
[2024-12-26] MEDS ORDERED: DO NOT ADMINISTER PNEUMOCOCCAL VACCINE PRN (17:06)
[2024-12-26] MEDS ORDERED: ACETAMINOPHEN 1,000 MG/100 ML VIAL IV PRN (17:06)
[2024-12-26] MEDS ORDERED: LORazepam 0.5 MG TAB PO PRN (17:06)
[2024-12-26] MEDS ORDERED: SOD PHOSPHATE/SOD BIPHOSPHATE ENEMA 132 ML BTL PR PRN (17:06)
[2024-12-26] MEDS ORDERED: NALOXONE HCL 0.4 MG/1 ML VIAL/CARP IV PRN (17:06)
[2024-12-26] MEDS ORDERED: PROMETHAZINE 12.5 MG/50.5 ML BAG IV PRN (17:06)
[2024-12-26] MEDS ORDERED: diphenhydrAMINE Capsule 25 MG CAP PO PRN (17:06)
[2024-12-26] MEDS: DOCUSATE SODIUM/SENNA 50/8.6MG TAB PO SCH (21:29)
[2024-12-26] MEDS: ceFAZolin 2000MG 2,000 MG/15 ML SYR IV SCH (21:47)
[2024-12-27] MEDS: POLYETHYLENE (MIRALAX) 17 GM PACK PO SCH (05:53)
[2024-12-27 07:25] LABS: Basophils # (auto) 0.03 K/uL (0.00-0.20); Basophils % (auto) 0.3 %; Eosinophils # (auto) 0.03 K/uL (0.00-0.50); Eosinophils % (auto) 0.3 %; Hematocrit (blood only) 30.2 % (37.0-47.0); Hemoglobin 9.8 g/dl (12.0-16.0); Immature Granulocytes # (auto) 0.07 K/uL (0.01-0.20); Immature Granulocytes % (auto) 0.6 %; Lymphocytes # (auto) 1.73 K/uL (1.20-3.40); Mean Corpuscular Hgb Conc 32.5 g/dL (32.0-36.0); Mean Corpuscular Volume 101.7 fL (80.0-100.0); Mean Platelet Volume 8.6 fL (9.4-12.4); Monocytes # (auto) 1.05 K/uL (0.11-0.59); Monocytes % (auto) 9.1 %; Neutrophils # (auto) 8.61 K/uL (1.40-6.50); Neutrophils % (auto) 74.7 %; Platelet Count 309 K/uL (130-400); RDW Coefficient of Variation 12.5 % (11.5-14.5); RDW Standard Deviation 45.3 fL (36.4-46.3); Red Blood Count 2.97 M/uL (4.20-5.40); White Blood Count 11.52 K/ul (4.8-10.8)
[2024-12-27 08:07] LABS: Albumin Globulin Ratio 1.5 (0.9-2); Albumin Level 3.9 gm/dl (3.4-5.0); BUN Creatinine Ratio 23.1 (10-20); Bilirubin,Total 0.4 mg/dl (0.2-1.0); Calcium 8.9 mg/dl (8.6-10.3); Creatinine Clr Calc Pharmacy 95.8 ml/min; Globulin 2.6 gm/dl (2.5-4.0); Potassium 4.9 mmol/L (3.5-5.1); Total Protein 6.5 gm/dl (6.0-8.3)
[2024-12-27] MEDS: traMADol HCL 50 MG TABLET PO PRN (09:14)
[2024-12-27] MEDS: dexAMETHasone 6 MG in SYRINGE 0 ML IV SCH (09:15)
--- NOTE | 2024-12-27 10:51 | Orthopedic Progress Note ---
Date of Service December 27, 2024 Assessment & Plan (1) Multilevel lumbosacral spondylosis with radiculopathy: Plan: At this time initiate physical therapy occupational therapy. She may be a candidate for rehab. Admission and Anticipated Discharge Date Admission Date: December 25, 2024 Subjective Patient's back pain is improved. Denies any leg pain. Physical Exam Physical Exam: Patient is currently seen in bed. She is comfortable. Is constricted testing. Results & Data Vital Signs (Past 12 Hours) Vital Signs Temp Pulse Resp BP Pulse Ox O2 Del Method O2 Flow Rate 12/27/24 08:01 36.7 C 101 H 18 148/82 H 96 Room Air 12/27/24 03:35 36.9 C 100 H 18 162/89 H 97 Nasal Cannula 2 12/26/24 23:23 36.9 C 99 H 18 138/76 96 Nasal Cannula 2 Queries Orthopedic Spine Acute Posthemorrhagic Anemia: Yes Obesity: Yes
[2024-12-27] MEDS: oxyCODONE HCL IR 5 MG TAB (IMMEDIATE RELEASE) PO PRN (11:12)
--- NOTE | 2024-12-27 13:49 | Hospitalist Progress Note ---
Date of Service December 27, 2024 Assessment & Plan (1) Closed compression fracture of L3 vertebra: (2) Elevated alkaline phosphatase level: (3) Anemia: Billy Anne is a 64F with a PMhx of lumbar radiculopathy and elevated hemidiaphragm who presented to the ED for worsening with back pain. Hospitalist consulted for medical management. Closed compression fracture of L3 vertebrae with increasing radicular and sciatic pain. Recently back surgery with Dr. Dye 12/06 for similar. Plan is for OR today with Dr. Dye DVT prophylaxis / pain control/ abx/ discharge planning per primary team elevated WBC likely reactive to steroids/stress hypoxia requiring O2 this afternoon - encourage IS and ambulation, if increased oxygen needs or not improved tomorrow will obtain CXR Elevated alk phos now downtrending. suspect secondary to fracture Anemia - Chronic While MCV is elevated, recent B12/folate have been normal. Fe studies consistent with JOON - plan to start PO Fe MWF Can check occult stool for completeness, hx of colonscopy 2020. Hyperlipidemia Mild with total Cholesterol 214 with HDL 60 - defer to PCP for start medication. Thank you for allowing us to participate in the care of this patient, please reach out with any questions or concerns. Medicine will continue to follow Admission and Anticipated Discharge Date Admission Date: December 25, 2024 Subjective Patient seen earlier this morning - at this time was denying any pain, but had recently had oxycodone paredes still in place, passing gas but no BM yet Did not feel short of breath during my encounter Review of Systems Review of Systems: All systems reviewed & are unremarkable except as noted in Subjective Physical Exam Physical Exam: General: NAD, VS as above Resp: normal respiratory effort, CTA anteriorly CV: RRR, no murmur, Abd: normal bowel sounds, non tender, soft Extremities: Moves all extremities, JULIEN hose and SCDs in place, able to wiggle toes bilaterally Neuro: A&O x3, Results & Data Results & Data Vital Signs (Past 12 Hours) Vital Signs Temp Pulse Resp BP Pulse Ox O2 Del Method O2 Flow Rate 12/27/24 12:40 99.1 F 94 Nasal Cannula 2 12/27/24 12:05 100.0 F H 103 H 18 156/82 H 86 L Room Air 12/27/24 08:01 98.1 F 101 H 18 148/82 H 96 Room Air 12/27/24 03:35 98.4 F 100 H 18 162/89 H 97 Nasal Cannula 2 Laboratory Results cbc and chemistry reviewed PG Care Time/CCT Total # of Minutes Spent Total Time Spent with Patient: Total time spent is greater than 50% in coordination of care (as documented) at patient's floor/unit and/or counseling patient: Coding Level of Care Code 03807 SUB INP/OBS CARE 2/35MIN Diagnoses Closed compression fracture of L3 vertebra S32.030A Encounter type: initial encounter Elevated alkaline phosphatase level R74.8 Anemia D64.9 (1) Closed compression fracture of L3 vertebra Encounter type: initial encounter Qualified Code(s): S32.030A - Wedge compression fracture of third lumbar vertebra, initial encounter for closed fracture
[2024-12-27] MEDS: HYDROmorphone INJ 1 MG/ML SYRINGE IV PRN (16:46)
--- NOTE | 2024-12-28 09:15 | Orthopedic Progress Note ---
Date of Service December 28, 2024 Assessment & Plan (1) Closed compression fracture of L3 vertebra: Plan: At this time we will continue with physical therapy. Monitor JYOTSNA output. Anticipate rehab placement early next week. Admission and Anticipated Discharge Date Admission Date: December 25, 2024 Subjective Patient's back pain is controlled. She struggling with some left leg pain with ambulation. Physical Exam Physical Exam: Patient is in the chair at the bedside. Is good strength testing. There is significant tenderness palpation of the left trochanteric and IT band region. Results & Data Vital Signs (Past 12 Hours) Vital Signs Temp Pulse Resp BP Pulse Ox O2 Del Method 12/28/24 08:10 37.1 C 87 18 158/78 H 94 Room Air Queries Orthopedic Spine Acute Posthemorrhagic Anemia: Yes Obesity: Yes Vertebral Fracture Secondary to Osteoporosis: Yes (1) Closed compression fracture of L3 vertebra Encounter type: initial encounter Qualified Code(s): S32.030A - Wedge compression fracture of third lumbar vertebra, initial encounter for closed fracture
--- NOTE | 2024-12-28 12:03 | Electrocardiogram Report ---
Test Reason : Blood Pressure : */* mmHG Vent. Rate : 101 BPM Atrial Rate : 101 BPM P-R Int : 140 ms QRS Dur : 88 ms QT Int : 350 ms P-R-T Axes : 43 2 -1 degrees QTcB Int : 453 ms Sinus tachycardia Nonspecific ST and T wave abnormality Abnormal ECG When compared with ECG of 14-Nov-2024 10:01, Premature atrial complexes are no longer Present Nonspecific T wave abnormality now evident in Anterior leads Confirmed by Matteo Sher ([id number]) on 12/28/2024 12:03:33 PM Referred By: REFERRED SELF Confirmed By: Matteo Sher
--- NOTE | 2024-12-28 12:06 | Hospitalist Progress Note ---
Date of Service December 28, 2024 Assessment & Plan (1) Closed compression fracture of L3 vertebra: (2) Elevated alkaline phosphatase level: (3) Anemia: Billy Anne is a 64F with a PMhx of lumbar radiculopathy and elevated hemidiaphragm who presented to the ED for worsening with back pain. Hospitalist consulted for medical management. Closed compression fracture of L3 vertebrae with increasing radicular and sciatic pain. Recently back surgery with Dr. Dye 12/06 for similar. Plan is for OR today with Dr. Dye DVT prophylaxis / pain control/ abx/ discharge planning per primary team elevated WBC likely reactive to steroids/stress no longer hypoxic, encourage continued IS use Elevated alk phos now downtrending. suspect secondary to fracture Anemia - Chronic While MCV is elevated, recent B12/folate have been normal. Fe studies consistent with JOON - plan to start PO Fe MWF Can check occult stool for completeness, hx of colonscopy 2020. Hyperlipidemia Mild with total Cholesterol 214 with HDL 60 - defer to PCP for start medication. Thank you for allowing us to participate in the care of this patient, please reach out with any questions or concerns. Medicine will sign off. Admission and Anticipated Discharge Date Admission Date: December 25, 2024 Supervising Physician Co-Signing Physician Notes Attending Attestation - Chart reviewed, care plan d/w RONALD Sands. I agree w/ the beck components of her documentation. Josef Poe MD Subjective patient sitting up in the chair, eating lunch pain is better controlled no sob today no BM today Review of Systems Review of Systems: All systems reviewed & are unremarkable except as noted in Subjective Physical Exam Physical Exam: General: NAD, VS as above Resp: normal respiratory effort, CTA, no crackles CV: RRR, no murmur, Abd: normal bowel sounds, non tender, soft Extremities: Moves all extremities, Neuro: A&O x3, Results & Data Results & Data Vital Signs (Past 12 Hours) Vital Signs Temp Pulse Resp BP Pulse Ox O2 Del Method 12/28/24 11:32 98.2 F 93 H 18 144/76 H 95 Room Air 12/28/24 08:10 98.8 F 87 18 158/78 H 94 Room Air 12/28/24 08:00 Room Air PG Care Time/CCT Total # of Minutes Spent Total Time Spent with Patient: Total time spent is greater than 50% in coordination of care (as documented) at patient's floor/unit and/or counseling patient: Coding Level of Care Code 42816 SUB INP/OBS CARE 11/08MIN Diagnoses Closed compression fracture of L3 vertebra S32.030A Encounter type: initial encounter Elevated alkaline phosphatase level R74.8 Anemia D64.9 (1) Closed compression fracture of L3 vertebra Encounter type: initial encounter Qualified Code(s): S32.030A - Wedge compression fracture of third lumbar vertebra, initial encounter for closed fracture
--- NOTE | 2024-12-29 08:54 | XRay Report ---
XR lumbar spine 2-3V CLINICAL HISTORY: stranding post op films COMPARISON STUDY: 12/25/2024 FINDINGS: Laminectomy and posterior metallic fusion from L2 through S1 shows no hardware complication . There is kyphoplasty at L2 and L3 and there is stable height loss at the L2-L4 vertebral bodies. No new fracture or subluxation. IMPRESSION: No acute findings. ACT 112: Negative or not required by law. Electronically signed by: Shreyas Jeffries M.D. 12/29/2024 8:53 AM
--- NOTE | 2024-12-29 09:08 | Fluoroscopy Report ---
FL lumbar spine 2-3V CLINICAL HISTORY: L3-L4 HW REMOVAL AND FUSION/ L3 KYPHOPLASTY COMPARISON STUDY: Lumbar spine radiographs and lumbar spine CT December 25, 2024. Lumbar spine fluorosc opic images December 05, 2024. FLUOROSCOPY TIME: 175.7 seconds. Ka,r: 165.50 mGy FLUOROSCOPIC IMAGES: 2 FINDINGS: Fluoroscopy was provided during hardware removal, L2 and L3 kyphoplasty, L3-L4 discectomy w ith interbody spacer placement and revision fusion. There are bilateral pedicle screws at the L2, L3, L4, L5 and S1 levels. Hardware is intact. IMPRESSION: Fluoroscopy provided during hardware removal, L2 and L3 kyphoplasty, L3-L4 discectomy an d revision fusion extending from L2 through S1. ACT 112: Negative or not required by law. Electronically signed by: Stefan Gaytan M.D. 12/29/2024 9:06 AM
[2024-12-29] MEDS: FERROUS SULFATE 325 MG TAB PO SCH (09:19)
--- NOTE | 2024-12-29 12:30 | Orthopedic Progress Note ---
Date of Service December 29, 2024 Assessment & Plan (1) Multilevel lumbosacral spondylosis with radiculopathy: Plan: At this time we will continue physical therapy monitor JYOTSNA output. She is waiting placement for rehab. Admission and Anticipated Discharge Date Admission Date: December 25, 2024 Subjective Back pain is controlled leg pain improving Physical Exam Physical Exam: Patient is in the chair at the bedside. She is comfortable. Good strength testing. Results & Data Vital Signs (Past 12 Hours) Vital Signs Temp Pulse Resp BP Pulse Ox O2 Del Method 12/29/24 07:42 36.8 C 91 H 18 146/78 H 98 Room Air Queries Orthopedic Spine Acute Posthemorrhagic Anemia: Yes Obesity: Yes Vertebral Fracture Secondary to Osteoporosis: Yes
--- NOTE | 2024-12-30 12:07 | Discharge Summary ---
Date of Service December 30, 2024 Admission HPI Per Admitting Provider This 64-year-old female known to me the presents the emergency room this morning with worsening back pain and left sciatica. She was seen in our office last week and there was some concern about a superior endplate fracture of L3. Imaging today in the emergency room does continue to demonstrate loss of height of the L3 vertebral body perhaps an inferior endplate fracture of L2. She describes severe pain with standing and ambulation. She is comfortable lying supine. She denies any numbness or tingling to her legs at this time. She does have a fall last week that precipitated her current symptom complex. Principal Diagnosis L3 pedicle fractures Discharge Data Allergies Allergy/AdvReac Type Severity Reaction Status Date / Time No Known Allergies Allergy Unknown Verified 12/05/24 11:24 Consultations 12/25/24 13:25 Consult Orthopedic Spine Surgery Routine 12/25/24 15:12 Consult Internal Medicine Routine Procedures Performed Operation Date: 12/26/24 12:45 Actual Procedures p L3-L4 Hardware Removal and Fusion Revision, L3 Kyphoplasty(Not Applicable) - Jared Dye DO Ordered Studies 12/25/24 12:12 CT lumbar spine wo con Stat 12/26/24 12:45 [place] lumbar spine 2-3V Routine Hospital Course (1) Closed compression fracture of L3 vertebra: Patient presents to hospital with new compression fractures of L2 and L3 with bilateral pedicle fractures of L3 with loosening hardware. She underwent urgent revision decompression fusion and stabilization of the fractures. She tolerated this well was taken to orthopedic for postoperative. Post ablation progressed steadily and appropriately throughout her hospital stay. JYOTSNA drain decreasing. Extra strength testing. Subsidy discharged to rehab. Discharge orders instructions from the chart for further review. Total Time Total Time Spent Total Time Spent (In Minutes): 20 minutes Discharge Plan Discharge Items Patient Disposition: Transfer Inpatient Rehab Fac Reason For Visit: BACK PAIN, DOC SENT Discharge Diagnosis: L3 pedicle fracture Activity: As commented below Non-emergency contact: Primary Care Provider Call non-emergency contact if: you have any medication questions Follow-up/Referrals: Randa Lisa [Primary Care Provider] - Diet: Regular Addtl Attending Provider Instructions: ACTIVITY RECOMMENDATIONS: SELF CARE INSTRUCTIONS AFTER THORACIC/LUMBAR FUSIONS 1. You may walk to your tolerance. It is good exercise for your legs and back. Expect some back and intermittent leg aches and pains. 2. You may perform "counter-top" level activities (make a sandwich, lima with a project, etc.). 3. No bending or lifting of more than 10 pounds or back twisting of any nature (roll like a log when turning in bed). 4. You may ride in a car for 20-30 minutes at a time. No driving until after your first visit with your doctor. 5. Frequent changes of position and restricting sitting to 30 minutes at a time will help limit the amount of back spasms and stiffness you may experience. 6. You may discontinue the use of ambulatory aids (cane, crutches, etc.) once your strength and confidence allow. 7. You may baggage inspector the shower and let water strike your incision when you arrive home at least once daily. Do not take a tub bath, sit in a hot tub or go into a swimming pool until after your first recheck in the office. 8. You may resume previous diet. SPECIAL CARE INSTRUCTIONS: VERY IMPORTANT TO READ AND REVIEW A. Your surgical incision has been closed with a cosmetic suture under the skin that will dissolve in about 6 weeks. In 14 days, you can use a pair of clean scissors and cut the suture that is left outside of the skin at the ends of your incision. 1. The small skin tapes can be removed 7 days after surgery if they have not fallen off by that point. 2. You may keep the wound open to air as much as possible to promote healing after post-op day number 5 unless told otherwise by your doctor. 3. If you think the wound looks like it is becoming infected (redness or worsening drainage) and/or you are experiencing fever, chill or worsening back pain and muscle spasms, contact the office so that we may evaluate you as soon as possible. B. Complications are uncommon, but please contact us if you have any signs or symptoms of: 1. wound infection (fever higher than 102.5 degrees F, redness, separation of wound, drainage, or increasing pain from the incision) 2. blood clots in legs (pain, swelling, redness and warmth in legs) 3. urinary tract infection (fever higher than 102.5 degrees F, burning upon urination or increased frequency of urination) 4. nerve problems (inability to walk on your toes or heels, numbness, loss of bowel or bladder control) 5. any other symptoms that concern you C. Please call the office at if you have any concerns or questions about your operation or recovery. D. No smoking! Smoking drastically decreases the chance of a solid fusion. E. Do not take any anti-inflammatory medications (Indocin, Advil, Motrin, Aspirin, Naprosyn, etc.) as these may inhibit the chance of a solid fusion. Tylenol is okay to take for pain. MANAGING PAIN AFTER SPINAL SURGERY 1. Narcotic medication is intended for short-term use and will be provided for surgical pain. Surgical pain usually lasts for a period of 4-6 weeks. Narcotic medication includes Percocet, Vicodin, Darvocet, Tylenol #3 or Lortab. 2. Longer-term pain is more appropriately treated with non-narcotic medication such as Tylenol ES. 3. Muscle spasm is not appropriately treated with narcotics. Muscle relaxers such as Soma, Flexeril or Skelaxin can be used along with Tylenol ES. 4. Remember that we all live with some "aches and pains". This is not unusual or uncommon after an injury or as we get older. a. Back pain is expected and may include muscle spasms for 4 to 6 weeks after surgery. The pain should gradually improve. If the pain worsens for no apparent reason, please contact the office. b. Intermittent leg pain may also be experienced and should not be concerned about unless it worsens for no apparent reason. If so, please contact the office. 5. We will provide appropriate medication within the normal guidelines of their prescribed use. We will also be very cautious and aware of potential abuse and extended duration of patients' medication needs. a. Pain medications are for your comfort and to assist with sleep and rest so that the tissue can heal. They are not provided in order to return to normal activity and should not be used through the day. To do so or worsening pain at night can result from ongoing tissue damage and development of tolerance to the prescribed medicine. 6. Please allow 2-3 days to process refills. Prescriptions will not be mailed but must be picked up at the office. FOLLOW UP VISIT: Keep your scheduled follow-up appointment. Any questions, please call the office at . Pending Studies at Discharge: No Stand-Alone Forms: [facility] Skilled Items Patient informed of condition?: Yes DNR: No Discharge Level of Care: Acute rehab Communicable Disease: No Discharge Prognosis: Improving Lines: None Urinary Catheter: No Medications and DC Order Prescriptions: New oxycodone 5 mg tablet 5 mg PO Q6H PRN (Reason: pain) Qty: 30 0RF Continued docusate sodium [Colace] 100 mg capsule 100 mg PO BID Rx Instructions: 12/25/24-otc unable to verify gabapentin 800 mg tablet 800 mg PO TID Qty: 90 3RF cyclobenzaprine 5 mg tablet 5 mg PO HS Amberen Menopause Support 2 cap PO QAM Rx Instructions: 12/25/24-otc unable to verify cholecalciferol (vitamin D3) [Vitamin D3] 125 mcg (5,000 unit) Tablet 125 mcg PO QAM Rx Instructions: 12/25/24-otc unable to verify [place] Gummies 2 tab PO QAM Rx Instructions: 12/25/24-otc unable to verify Brain Health 6 Function 1 cap PO QAM Rx Instructions: 12/25/24-otc unable to verify Energy Multivitamin 1 tab PO QAM Rx Instructions: 12/25/24-otc unable to verify [place]essa Xl Odessa Support 2 cap PO BID Rx Instructions: 12/25/24-otc unable to verify tramadol 50 mg tablet 50 mg PO Q6H PRN (Reason: pain, moderate) Qty: 30 0RF oxycodone 5 mg tablet 5 mg PO Q6H PRN (Reason: pain) Qty: 30 0RF Rx Instructions: last filled 12/06 8 day supply cyanocobalamin (vitamin B-12) 500 mcg Tablet 500 mcg PO QAM Qty: 30 0RF Rx Instructions: 12/25/24-otc unable to verify Discontinued diclofenac sodium 75 mg tablet,delayed release (DR/EC) 75 mg PO BID PRN (Reason: Pain) Rx Instructions: only using it 1x/day because it upsets her stomach Discharge Orders: Discharge Order (Routine); Ordered 12/30/24 Ordered By: Jared Dye Admission Data Admit Date/Time: 12/25/24 13:23 Attending Provider: Jared Dye Admit Provider: Jared Dye Primary Care Provider: Randa Lisa Other Providers: Jared Dey; Perkins,Care; Josef Poe
[2024-12-30 19:45] VITALS: RESP 16
[2024-12-31 07:17] VITALS: BP 116/66; PULSE 76; TEMP 98.1; O2SAT 92
== END 2024-12-31 13:42 | DRG 427 ==
LOC: ED 11:36 → 3W 13:23